=== PATIENT | male | born 1995 | race African-American/Black ===

== ENCOUNTER 2020-02-07 11:08 | Inpatient (IN) | payer SELFPAY ==
--- NOTE | 2020-02-07 12:02 | ER Document Report ---
ED Medical Screen (RME) - General Chief Complaint: Urinary Frequency Stated Complaint: FREQUENT URINATION,WEAKNESS Time Seen by Provider: 02/07/20 11:55 Mode of Arrival: Ambulatory Information source: Patient Notes: Otherwise healthy 24-year-old male patient presenting to the emergency department with complaints of frequent urination and excessive thirst over the last week. Patient also reports pain in his right lower extremity. He denies any history of diabetes. Denies any recent illness. Heart sounds S1-S2 present, tachycardic, lung sounds clear and equal bilaterally. I have greeted and performed a rapid initial assessment of this patient. A comprehensive ED assessment and evaluation of the patient, analysis of test results and completion of the medical decision making process will be conducted by additional ED providers. I have specifically instructed the patient or family members with the patient to immediately return to any nursing staff should anything change in the patient's condition or with their chief complaint. Physical Exam - Vital signs Vitals: Temp Pulse Resp BP Pulse Ox 97.5 F 108 H 18 163/92 H 100 02/07/20 11:18 02/07/20 11:18 02/07/20 11:18 02/07/20 11:18 02/07/20 11:18 Course - Vital Signs Vital signs: Temp Pulse Resp BP Pulse Ox 97.5 F 108 H 18 163/92 H 100 02/07/20 11:18 02/07/20 11:18 02/07/20 11:18 02/07/20 11:18 02/07/20 11:18
[2020-02-07] MEDS: NORMAL SALINE 1000 ML 1,000 ML IV PRN ×4 (12:30→20:30)
[2020-02-07 12:47] LABS: ABSOLUTE EOSINOPHILS # (AUTO) 0.2 10^3/uL (0.0-0.6); ABSOLUTE MONOCYTES (AUTO) 0.5 10^3/uL (0.1-1.4); ABSOLUTE NEUT (AUTO) 3.2 10^3/uL (1.7-8.2); BASOPHILS % (AUTO) 0.7 % (0-2); EOSINOPHILS % (AUTO) 3.6 % (0-6); HEMATOCRIT 50.9 % (37.9-51.0); HEMOGLOBIN 15.6 g/dL (13.5-17.0); LYMPHOCYTES % (AUTO) 19.3 % (13-45); MEAN CORPUSCULAR HGB CONC 30.7 g/dL (32.0-36.0); MEAN CORPUSCULAR VOLUME 85 fl (80-97); MONOCYTES % (AUTO) 10.8 % (3-13); RED BLOOD COUNT 6.01 10^6/uL (4.35-5.55); RED CELL DISTRIBUTION WIDTH 16.7 % (11.5-14.0); SEGMENTED NEUTROPHILS % (AUTO) 65.6 % (42-78); TOTAL CELLS COUNTED % (AUTO) 100 %; WHITE BLOOD COUNT 4.9 10^3/uL (4.0-10.5)
[2020-02-07 12:50] LABS: APPEARANCE,URINE CLEAR; BILIRUBIN,URINE NEGATIVE (NEGATIVE); COLOR,URINE COLORLESS; GLUCOSE, URINE >=500 mg/dL (NEGATIVE); KETONES,URINE TRACE mg/dL (NEGATIVE); LEUKOCYTE ESTERASE,URINE NEGATIVE (NEGATIVE); NITRITE,URINE NEGATIVE (NEGATIVE); PROTEIN,URINE NEGATIVE (NEGATIVE); URINE SPECIFIC GRAVITY 1.027; UROBILINOGEN,URINE NEGATIVE mg/dL (<2.0)
[2020-02-07 12:51] LABS: VENOUS BLOOD BASE EXCESS -2.6 mmol/L; VENOUS BLOOD HCO3 24.1 mmol/L (20-32); VENOUS BLOOD PCO2 48.6 mmHg (35-63); VENOUS BLOOD PH 7.31 (7.30-7.42)
[2020-02-07 13:07] LABS: ALBUMIN 4.8 g/dL (3.5-5.0); ALKALINE PHOSPHATASE 248 U/L (38-126); BILIRUBIN,DIRECT 0.3 mg/dL (0.0-0.4); BILIRUBIN,TOTAL 0.8 mg/dL (0.2-1.3); BLOOD UREA NITROGEN 36 mg/dL (7-20); CALCIUM 11.4 mg/dL (8.4-10.2); CARBON DIOXIDE 19 mmol/L (22-30); CHLORIDE 87 mmol/L (98-107); POTASSIUM 5.8 mmol/L (3.6-5.0); TOTAL PROTEIN 9.4 g/dL (6.3-8.2)
[2020-02-07 13:14] LABS: PLATELET COUNT 233 10^3/uL (150-450)
[2020-02-07 13:16] LABS: ASPARTATE AMINO TRANSFERASE 23 U/L (17-59); GLUCOSE 1065 mg/dL (75-110)
[2020-02-07] MEDS ORDERED: INSULIN REG, HUMAN 100 UNIT/ML 3 ML VIAL (PYX) IV ONE (13:19)
[2020-02-07 13:20] LABS: ANION GAP 21 (5-19)
--- NOTE | 2020-02-07 13:46 | ER Document Report ---
Entered by SAIDA GRUBBS SCRIBE 02/07/20 [id number] Acting as scribe for:KAYDEN MUJICA MD ED General - General Chief Complaint: Urinary Frequency Stated Complaint: FREQUENT URINATION,WEAKNESS Time Seen by Provider: 02/07/20 11:55 Mode of Arrival: Ambulatory Information source: Patient Notes: This 24 year old male patient presents to the emergency department today with complaints of a x9-10 day history of frequent urination, increased thirst, and a 10 pound weight loss. Patient's parents are now but both had IDDM. Patient takes no medication daily and has no known medical problems. - Related Data Allergies/Adverse Reactions: No Known Allergies Allergy (Verified 02/07/20 12:04) Past Medical History - General Information source: Patient - Social History Smoking Status: Never Smoker Cigarette use (# per day): No Chew tobacco use (# tins/day): No Frequency of alcohol use: Occasional Drug Abuse: Marijuana Lives with: Family Family History: DM, Malignancy Surgical Hx: Negative Review of Systems - Review of Systems Constitutional: See HPI, Other - increased thirst, Weight loss - 10 pounds EENT: No symptoms reported Cardiovascular: No symptoms reported Respiratory: No symptoms reported Gastrointestinal: No symptoms reported Genitourinary: See HPI, Frequency Male Genitourinary: No symptoms reported Musculoskeletal: No symptoms reported Skin: No symptoms reported Hematologic/Lymphatic: No symptoms reported Neurological/Psychological: No symptoms reported -: Yes All other systems reviewed and negative Physical Exam - Vital signs Vitals: Temp Pulse Resp BP Pulse Ox 97.5 F 108 H 18 163/92 H 100 02/07/20 11:18 02/07/20 11:18 02/07/20 11:18 02/07/20 11:18 02/07/20 11:18 - Notes Notes: Physical Exam: General: Alert, no ketone odor on breath. HEENT: Normocephalic. Atraumatic. PERRL. Extraocular movements intact. Oropharynx clear. Dry oral mucosa. Neck: Supple. Non-tender. Respiratory: No respiratory distress. Clear and equal breath sounds bilaterally. Cardiovascular: Tachycardic, regular rhythm. Abdominal: Obese. Non-tender. No distension. Normal Bowel Sounds. Back: No gross abnormalities. Extremities: Moves all four extremities. Upper extremities: Normal inspection. Normal ROM. Lower extremities: Normal inspection. No edema. Normal ROM. Neurological: Normal cognition. AAOx4. Normal speech. Psychological: Normal affect. Normal Mood. Skin: Warm. Dry. Normal color. Course - Vital Signs Vital signs: Temp Pulse Resp BP Pulse Ox 97.5 F 108 H 15 138/97 H 100 02/07/20 11:18 02/07/20 11:18 02/07/20 19:00 02/07/20 18:01 02/07/20 19:00 - Laboratory Result Diagrams: 02/07/20 12:22 02/07/20 12:22 Laboratory results interpreted by me: 02/07/20 02/07/20 02/07/20 12:22 12:22 12:22 RBC 6.01 H MCH 26.0 L MCHC 30.7 L RDW 16.7 H Sodium 127.1 L Potassium 5.8 H Chloride 87 L Carbon Dioxide 19 L Anion Gap 21 H BUN 36 H Creatinine 1.93 H Est GFR ( Amer) 52 L Est GFR (MDRD) Non-Af 43 L Glucose 1065 H* Calcium 11.4 H Alkaline Phosphatase 248 H Total Protein 9.4 H Urine Glucose (UA) >=500 H Urine Ketones TRACE H - EKG Interpretation by Me EKG shows normal: Sinus rhythm, [place], QRS Complexes, ST-T Waves. abnormal: Intervals - Prolonged QT interval Rate: Normal - 96 Rhythm: NSR Voltage: Consistent with LVH P Waves: LAE Critical Care Note - Critical Care Note Total time excluding time spent on procedures (mins): 35 Comments: At least 35 minutes spent evaluating patient, reviewing history, physical fin dings, and laboratory abnormalities. Starting emergency management of life- threatening hypoglycemia. Discussing patient with the hospitalist service to get the admission started. Discharge - Discharge Clinical Impression: New onset type 2 diabetes mellitus Hyperglycemia due to type 2 diabetes mellitus Qualifiers: Diabetes mellitus terminal supervisor insulin use: without terminal supervisor use Qualified Code(s): E11.65 - Type 2 diabetes mellitus with hyperglycemia Condition: Stable Disposition: ADMITTED INPATIENT Admitting Provider: Lorena (Hospitalist) Unit Admitted: I[facility]U I personally performed the services described in the documentation, reviewed and edited the documentation which was dictated to the scribe in my presence, and it accurately records my words and actions.
[2020-02-07] MEDS ORDERED: ONDANSETRON HCL INJ/PF 4 MG/2 ML SDV IV PRN (13:50)
[2020-02-07] MEDS: NORMAL SALINE 100 ML with INSULIN REGULAR, HUMAN 100 UNIT IV PRN ×4 (13:50→23:13)
[2020-02-07] MEDS ORDERED: ACETAMINOPHEN 325 MG TABLET PO PRN (13:50)
[2020-02-07] MEDS ORDERED: DEXTROSE 40% GEL 15 GM TUBE PO PRN ×2 (13:54)
[2020-02-07] MEDS ORDERED: GLUCAGON,HUMAN RECOMB 1 MG INJ IM PRN (13:54)
[2020-02-07] MEDS ORDERED: DEXTROSE 50%-WATER 25 GM/50 ML DISP.SYRIN IV PRN ×2 (13:54)
--- NOTE | 2020-02-07 14:05 | PDOC H&P ---
History of Present Illness Patient complains of: Came with the complaints of weight loss of more than 10 pounds associated with the increased frequency of urination and thirstiness. History of Present Illness: FELIPE FAJARDO is a 24 year old male no significant medical history but a strong family history of diabetes mellitus came to the emergency room with complaints of increased frequency of urination, associated with increased to 13 days, weight loss of more than 10 pounds. In the emergency room blood sugar is 1065, serum sodium is 127, potassium is 5.8, creatinine is 1.93 and anion gap is around 21. Patient was started on IV fluids and unable to get insulin drip and medical consult was called for admission. Past Surgical History Past Surgical History: Reports: None Social History Lives with: Family Smoking Status: Never Smoker Electronic Cigarette use?: No Hx Recreational Drug Use: No Drugs: Marijuana Hx Prescription Drug Abuse: No - Advance Directive Resuscitation Status: Full Code Family History Family History: DM, Malignancy Parental Family History Reviewed: Yes Children Family History Reviewed: Yes Sibling(s) Family History Reviewed.: Yes Medication/Allergy Home Medications: No Home Medications 02/07/20 Allergies/Adverse Reactions: No Known Allergies Allergy (Verified 02/07/20 12:04) Review of Systems Constitutional: ABSENT: fatigue, fever(s), headache(s), night sweats Eyes: ABSENT: visual disturbances Ears: ABSENT: hearing changes Nose, Mouth, and Throat: ABSENT: sore throat Cardiovascular: ABSENT: orthropnea, palpitations Respiratory: ABSENT: dyspnea, hemoptysis Gastrointestinal: ABSENT: bloating, coffee ground emesis, diarrhea, dysphagia Genitourinary: PRESENT: other - Polyuria, polydipsia Musculoskeletal: ABSENT: joint swelling Integumentary: ABSENT: rash, wounds Neurological: ABSENT: abnormal gait, abnormal speech, confusion, dizziness, focal weakness, syncope Psychiatric: ABSENT: anxiety, depression, homidical ideation, suicidal ideation Physical Exam Vital Signs: Temp Pulse Resp BP Pulse Ox 97.5 F 108 H 18 163/92 H 100 02/07/20 11:18 02/07/20 11:18 02/07/20 11:18 02/07/20 11:18 02/07/20 11:18 Intake & Output 02/06/20 02/07/20 02/08/20 06:59 06:59 06:59 Intake Total 1000 Balance 1000 Weight 97.2 kg General appearance: PRESENT: no acute distress, cooperative Head exam: PRESENT: atraumatic Eye exam: PRESENT: PERRLA Mouth exam: PRESENT: moist, tongue midline Neck exam: ABSENT: carotid bruit, JVD, lymphadenopathy, thyromegaly Respiratory exam: PRESENT: clear to auscultation arn[place]. ABSENT: rales, rhonchi, wheezes Cardiovascular exam: PRESENT: RRR. ABSENT: diastolic murmur, rubs, systolic murmur GI/Abdominal exam: PRESENT: normal bowel sounds, soft. ABSENT: distended, guarding, mass, organolmegaly, rebound, tenderness Rectal exam: PRESENT: deferred Extremities exam: PRESENT: full ROM. ABSENT: calf tenderness, clubbing, pedal edema Neurological exam: PRESENT: alert, awake, oriented to person, oriented to place, oriented to time, oriented to situation, CN II-XII grossly intact. ABSENT: motor sensory deficit Psychiatric exam: PRESENT: appropriate affect, normal mood. ABSENT: homicidal ideation, suicidal ideation Skin exam: PRESENT: dry, intact, warm. ABSENT: cyanosis, rash Results Laboratory Results: 02/07/20 12:22 02/07/20 12:22 02/07/20 02/07/20 02/07/20 12:22 12:22 12:22 WBC 4.9 RBC 6.01 H Hgb 15.6 Hct 50.9 MCV 85 MCH 26.0 L MCHC 30.7 L RDW 16.7 H Plt Count 233 Seg Neutrophils % 65.6 VBG pH 7.31 VBG pCO2 48.6 VBG HCO3 24.1 VBG Base Excess -2.6 Sodium 127.1 L Potassium 5.8 H Chloride 87 L Carbon Dioxide 19 L Anion Gap 21 H BUN 36 H Creatinine 1.93 H Est GFR ( Amer) 52 L Glucose 1065 H* Calcium 11.4 H Total Bilirubin 0.8 AST 23 Alkaline Phosphatase 248 H Total Protein 9.4 H Albumin 4.8 Urine Color Urine Appearance Urine pH Ur Specific [place] Urine Protein Urine Glucose (UA) Urine Ketones Urine Blood Urine Nitrite Ur Leukocyte Esterase Urine WBC (Auto) 02/07/20 12:22 WBC RBC Hgb Hct MCV MCH MCHC RDW Plt Count Seg Neutrophils % VBG pH VBG pCO2 VBG HCO3 VBG Base Excess Sodium Potassium Chloride Carbon Dioxide Anion Gap BUN Creatinine Est GFR ( Amer) Glucose Calcium Total Bilirubin AST Alkaline Phosphatase Total Protein Albumin Urine Color COLORLESS Urine Appearance CLEAR Urine pH 6.0 Ur Specific [place] 1.027 Urine Protein NEGATIVE Urine Glucose (UA) >=500 H Urine Ketones TRACE H Urine Blood NEGATIVE Urine Nitrite NEGATIVE Ur Leukocyte Esterase NEGATIVE Urine WBC (Auto) 0 Assessment and Plan - Diagnosis (1) New onset type 2 diabetes mellitus Is this a current diagnosis for this admission?: Yes Plan: 04/08/2019-patient is going to be admitted with a diagnosis of new onset type 2 diabetes mellitus with a strong family history of diabetes. Blood sugar in the ER is 1065, in acute renal failure, with hyponatremia and hyperkalemia. Patient was started on insulin drip, to continue IV fluids normal saline at 250 cc/h. To check the labs every 4-6 hours. Prophylaxis DVT prophylaxis initiated. Counseling was provided about diabetes mellitus. (2) Hyponatremia Is this a current diagnosis for this admission?: Yes Plan: 02/07/2020-serum sodium is 127. Corrected serum sodium is within normal limits. (3) LAITH (acute kidney injury) Is this a current diagnosis for this admission?: Yes Plan: 02/07/2020-admission serum creatinine is 1.93. Acute kidney injury most likely secondary to prerenal causes. Patient is presently on normal saline to 250 cc/h. Received 2 L of normal saline in the ER. (4) Hyperkalemia Is this a current diagnosis for this admission?: Yes Plan: 02/07/2020-serum potassium is 5.8. hyper kalemia most likely secondary to acute kidney injury. Plan is to check the labs the labs on regular basis. - Time Anticipated Discharge Disposition: Home, Self Care Anticipated Discharge Timeframe: within 72 hours
[2020-02-07] MEDS: PANTOPRAZOLE SODIUM 40 MG TABLET.DR PO SCH (16:24)
[2020-02-07] MEDS ORDERED: HYDRALAZINE HCL INJ/PF 20 MG/1 ML SDV IV PRN (17:16)
--- NOTE | 2020-02-07 19:27 | EKG REPORT ---
SEVERITY:- ABNORMAL ECG - SINUS RHYTHM PROBABLE LEFT ATRIAL ABNORMALITY LEFT VENTRICULAR HYPERTROPHY ST ELEV, PROBABLE NORMAL EARLY REPOL PATTERN PROLONGED QT INTERVAL : Confirmed by: Nava Acosta MD 07-Feb-2020 19:27:11
[2020-02-07 19:45] LABS: ANION GAP 11 (5-19); BLOOD UREA NITROGEN 27 mg/dL (7-20); CALCIUM 10.8 mg/dL (8.4-10.2); CARBON DIOXIDE 24 mmol/L (22-30); CHLORIDE 104 mmol/L (98-107)
[2020-02-07 19:51] LABS: POTASSIUM 4.4 mmol/L (3.6-5.0)
[2020-02-07 19:53] LABS: GLUCOSE 402 mg/dL (75-110)
[2020-02-08 03:03] LABS: HEMATOCRIT 40.7 % (37.9-51.0); MEAN CORPUSCULAR HEMOGLOBIN 25.9 pg (27.0-33.4); MEAN CORPUSCULAR HGB CONC 32.4 g/dL (32.0-36.0); PLATELET COUNT 213 10^3/uL (150-450); RED BLOOD COUNT 5.09 10^6/uL (4.35-5.55); RED CELL DISTRIBUTION WIDTH 15.9 % (11.5-14.0); WHITE BLOOD COUNT 3.9 10^3/uL (4.0-10.5)
[2020-02-08 03:04] LABS: HEMOGLOBIN 13.2 g/dL (13.5-17.0); MEAN CORPUSCULAR VOLUME 80 fl (80-97)
[2020-02-08] MEDS ORDERED: DEXTROSE 5%-1/2 NORMAL SALINE 1,000 ML IV PRN (03:17)
[2020-02-08 03:19] LABS: ALBUMIN 3.5 g/dL (3.5-5.0); ALKALINE PHOSPHATASE 157 U/L (38-126); AMYLASE 59 U/L (30-110); ANION GAP 11 (5-19); ASPARTATE AMINO TRANSFERASE 26 U/L (17-59); BILIRUBIN,DIRECT 0.3 mg/dL (0.0-0.4); BILIRUBIN,TOTAL 0.6 mg/dL (0.2-1.3); BLOOD UREA NITROGEN 21 mg/dL (7-20); CALCIUM 9.6 mg/dL (8.4-10.2); CARBON DIOXIDE 23 mmol/L (22-30); CHLORIDE 108 mmol/L (98-107); CHOLESTEROL 183.03 mg/dL (0-200); GLUCOSE 116 mg/dL (75-110); POTASSIUM 3.8 mmol/L (3.6-5.0); TOTAL PROTEIN 7.1 g/dL (6.3-8.2); TRIGLYCERIDES 183 mg/dL (<150)
[2020-02-08 03:30] LABS: DIRECT LDL 126 mg/dL (<100)
[2020-02-08] MEDS ORDERED: INSULIN GLARGINE,HUM.REC.ANLOG 1,000 UNIT/10 ML VIAL (PYX) SUBCUT ONE (03:30)
[2020-02-08 03:35] LABS: VLDL CHOLESTEROL 36.6 mg/dL (10-31)
[2020-02-08 04:02] LABS: ABSOLUTE LYMPHOCYTES# (MANUAL) 0.8 10^3/uL (0.5-4.7); ABSOLUTE MONOCYTES # (MANUAL) 0.4 10^3/uL (0.1-1.4); ANISOCYTOSIS 1+; BAND NEUTROPHILS % (MANUAL) 1 % (3-5); BASOPHILS % (MANUAL) 0 % (0-2); EOSINOPHILS % (MANUAL) 11 % (0-6); HYPOCHROMASIA SLIGHT; LYMPHOCYTES % (MANUAL) 16 % (13-45); MONOCYTES % (MANUAL) 11 % (3-13); SEGMENTED NEUTROPHILS % (MAN) 56 % (42-78); TOTAL CELLS COUNTED 100; TOXIC GRANULATION SLIGHT; TOXIC VACUOLATION PRESENT
[2020-02-08 04:03] LABS: PLATELET COMMENT ADEQUATE
[2020-02-08] MEDS: PANTOPRAZOLE SODIUM 40 MG TABLET.DR PO SCH ×2 (06:00→16:25)
[2020-02-08] MEDS: INSULIN REG, HUMAN 100 UNIT/ML 3 ML VIAL (PYX) SUBCUT SCH ×4 (08:18→22:11)
--- NOTE | 2020-02-08 10:11 | PDOC PROGRESS REPORT ---
Subjective Date:: 02/08/20 Subjective:: 24 year old male no significant medical history but a strong family history of d iabetes mellitus came to the emergency room with complaints of increased frequency of urination, associated with increased to 13 days, weight loss of more than 10 pounds. In the emergency room blood sugar is 1065, serum sodium is 127, potassium is 5.8, creatinine is 1.93 and anion gap is around 21. Patient was started on IV fluids and unable to get insulin drip and medical consult was called for admission. 02/[id number]-[id number]-old male admitted with diabetic ketoacidosis. Resolving. No acute events in the last 24 hours. Patient presently on diabetic diet, insulin drip is discontinued, started on Lantus 25 units twice a day. Diabetic education was provided. Latest blood sugar is 213. Reason For Visit: DKA Physical Exam Vital Signs: Temp Pulse Resp BP Pulse Ox 98.1 F 85 16 147/86 H 100 02/08/20 07:59 02/08/20 07:59 02/08/20 07:59 02/08/20 07:59 02/08/20 07:59 Intake & Output 02/07/20 02/08/20 02/09/20 06:59 06:59 06:59 Intake Total 5072 Output Total 400 Balance 4672 Weight 101.9 kg General appearance: PRESENT: no acute distress, cooperative Head exam: PRESENT: atraumatic Eye exam: PRESENT: PERRLA Mouth exam: PRESENT: moist, tongue midline Teeth exam: PRESENT: poor dentation Neck exam: PRESENT: lymphadenopathy Respiratory exam: PRESENT: decreased breath sounds Cardiovascular exam: PRESENT: RRR. ABSENT: diastolic murmur, rubs, systolic murmur GI/Abdominal exam: PRESENT: normal bowel sounds, soft. ABSENT: distended, guarding, mass, organolmegaly, rebound, tenderness Rectal exam: PRESENT: deferred Extremities exam: PRESENT: full ROM. ABSENT: calf tenderness, clubbing, pedal edema Neurological exam: PRESENT: alert, awake, oriented to person, oriented to place, oriented to time, oriented to situation, CN II-XII grossly intact. ABSENT: motor sensory deficit Psychiatric exam: PRESENT: appropriate affect, normal mood. ABSENT: homicidal ideation, suicidal ideation Skin exam: PRESENT: dry, intact, warm. ABSENT: cyanosis, rash Results Laboratory Results: 02/08/20 02:32 02/08/20 02:32 02/07/20 02/07/20 02/07/20 12:22 12:22 12:22 WBC 4.9 RBC 6.01 H Hgb 15.6 Hct 50.9 MCV 85 MCH 26.0 L MCHC 30.7 L RDW 16.7 H Plt Count 233 Seg Neutrophils % 65.6 VBG pH 7.31 VBG pCO2 48.6 VBG HCO3 24.1 VBG Base Excess -2.6 Sodium 127.1 L Potassium 5.8 H Chloride 87 L Carbon Dioxide 19 L Anion Gap 21 H BUN 36 H Creatinine 1.93 H Est GFR ( Amer) 52 L Glucose 1065 H* Calcium 11.4 H Magnesium Total Bilirubin 0.8 AST 23 Alkaline Phosphatase 248 H Total Protein 9.4 H Albumin 4.8 Triglycerides Cholesterol LDL Cholesterol Direct VLDL Cholesterol HDL Cholesterol Amylase Lipase TSH Urine Color Urine Appearance Urine pH Ur Specific [place] Urine Protein Urine Glucose (UA) Urine Ketones Urine Blood Urine Nitrite Ur Leukocyte Esterase Urine WBC (Auto) 02/07/20 02/07/20 02/07/20 12:22 12:22 19:00 WBC RBC Hgb Hct MCV MCH MCHC RDW Plt Count Seg Neutrophils % VBG pH VBG pCO2 VBG HCO3 VBG Base Excess Sodium 139.2 Potassium 4.4 D Chloride 104 Carbon Dioxide 24 Anion Gap 11 BUN 27 H Creatinine 1.52 H Est GFR ( Amer) > 60 Glucose 402 H* Calcium 10.8 H Magnesium Total Bilirubin AST Alkaline Phosphatase Total Protein Albumin Triglycerides Cholesterol LDL Cholesterol Direct VLDL Cholesterol HDL Cholesterol Amylase Lipase 150.2 TSH Urine Color COLORLESS Urine Appearance CLEAR Urine pH 6.0 Ur Specific [place] 1.027 Urine Protein NEGATIVE Urine Glucose (UA) >=500 H Urine Ketones TRACE H Urine Blood NEGATIVE Urine Nitrite NEGATIVE Ur Leukocyte Esterase NEGATIVE Urine WBC (Auto) 0 02/08/20 02/08/20 02/08/20 02:32 02:32 02:32 WBC 3.9 L RBC 5.09 Hgb 13.2 L D Hct 40.7 MCV 80 D MCH 25.9 L MCHC 32.4 RDW 15.9 H Plt Count 213 Seg Neutrophils % Not Reportable VBG pH VBG pCO2 VBG HCO3 VBG Base Excess Sodium 142.2 Potassium 3.8 Chloride 108 H Carbon Dioxide 23 Anion Gap 11 BUN 21 H Creatinine 1.25 Est GFR ( Amer) > 60 Glucose 116 H Calcium 9.6 Magnesium 1.8 Total Bilirubin 0.6 AST 26 Alkaline Phosphatase 157 H Total Protein 7.1 Albumin 3.5 Triglycerides 183 H Cholesterol 183.03 LDL Cholesterol Direct 126 H VLDL Cholesterol 36.6 H HDL Cholesterol 20 L Amylase 59 Lipase TSH 1.11 Urine Color Urine Appearance Urine pH Ur Specific [place] Urine Protein Urine Glucose (UA) Urine Ketones Urine Blood Urine Nitrite Ur Leukocyte Esterase Urine WBC (Auto) 02/07/20 02/07/20 02/07/20 12:22 20:25 20:25 Troponin I < 0.012 < 0.012 NT-Pro-B Natriuret Pep < 11 02/08/20 02:32 Troponin I < 0.012 NT-Pro-B Natriuret Pep Assessment and Plan - Diagnosis (1) New onset type 2 diabetes mellitus Is this a current diagnosis for this admission?: Yes Plan: 02/07/2020-patient is going to be admitted with a diagnosis of new onset type 2 diabetes mellitus with a strong family history of diabetes. Blood sugar in the ER is 1065, in acute renal failure, with hyponatremia and hyperkalemia. Patient was started on insulin drip, to continue IV fluids normal saline at 250 cc/h. To check the labs every 4-6 hours. Prophylaxis DVT prophylaxis initiated. Counseling was provided about diabetes mellitus. 02/[id number]-lvxz-old male admitted for newly diagnosed diabetes mellitus and DKA. Doing well. Latest blood sugar is 213. Started on diabetic diet, presently on Lantus 25 units twice a day. Hemoglobin A1c is 10.5. IV fluids were discontinued, insulin drip is discontinued, to repeat the labs tomorrow. (2) Hyponatremia Is this a current diagnosis for this admission?: Yes Plan: 02/07/2020-serum sodium is 127. Corrected serum sodium is within normal limits. 02/08/2020-serum sodium is 141. Hyponatremia due to DKA resolving. (3) LAITH (acute kidney injury) Is this a current diagnosis for this admission?: Yes Plan: 02/07/2020-admission serum creatinine is 1.93. Acute kidney injury most likely secondary to prerenal causes. Patient is presently on normal saline to 250 cc/h. Received 2 L of normal saline in the ER. 02/08/20-admission serum creatinine is 1.93. Creatinine this morning 1.23. LAITH is resolving. (4) Hyperkalemia Is this a current diagnosis for this admission?: Yes Plan: 02/07/2020-serum potassium is 5.8. hyper kalemia most likely secondary to acute kidney injury. Plan is to check the labs the labs on regular basis. 02/08/2020-serum potassium this morning is 3.9. Hyperkalemia is resolved. - Time Anticipated Discharge Disposition: Home, Self Care Anticipated Discharge Timeframe: within 48 hours
[2020-02-08] MEDS: INSULIN GLARGINE,HUM.REC.ANLOG 1,000 UNIT/10 ML VIAL SUBCUT SCH ×2 (10:16→17:29)
[2020-02-08] MEDS: ENOXAPARIN SODIUM INJ 40 MG/0.4 ML DISP.SYRIN SUBCUT SCH (10:17)
[2020-02-08] MEDS ORDERED: INSULIN GLARGINE,HUM.REC.ANLOG 1,000 UNIT/10 ML VIAL SUBCUT SCH (22:00)
[2020-02-08] MEDS ORDERED: INSULIN REG, HUMAN 100 UNIT/ML 3 ML VIAL (PYX) SUBCUT ONE (23:45)
[2020-02-09] MEDS: PANTOPRAZOLE SODIUM 40 MG TABLET.DR PO SCH (05:36)
[2020-02-09] MEDS ORDERED: INFLUENZA QUAD (6MOS+) 2020-21 VAC 0.5 ML SYR IM ONE (08:00)
[2020-02-09] MEDS: INSULIN REG, HUMAN 100 UNIT/ML 3 ML VIAL (PYX) SUBCUT SCH ×3 (08:55→17:00)
[2020-02-09] MEDS: ENOXAPARIN SODIUM INJ 40 MG/0.4 ML DISP.SYRIN SUBCUT SCH (10:00)
[2020-02-09] MEDS ORDERED: INSULIN GLARGINE,HUM.REC.ANLOG 1,000 UNIT/10 ML VIAL SUBCUT SCH (11:00)
--- NOTE | 2020-02-09 11:46 | PDOC DISCHARGE SUMMARY ---
Impression - Admit/DC Date/PCP Admission Date/Primary Care Provider: 02/07/20 14:03 Discharge Date: 02/09/20 - Discharge Diagnosis (1) New onset type 2 diabetes mellitus Is this a current diagnosis for this admission?: Yes (2) Hyponatremia Is this a current diagnosis for this admission?: Yes (3) LAITH (acute kidney injury) Is this a current diagnosis for this admission?: Yes (4) Hyperkalemia Is this a current diagnosis for this admission?: Yes - Assessment Summary: (1) New onset type 2 diabetes mellitus Is this a current diagnosis for this admission?: Yes Plan: 02/07/2020-patient is going to be admitted with a diagnosis of new onset type 2 diabetes mellitus with a strong family history of diabetes. Blood sugar in the ER is 1065, in acute renal failure, with hyponatremia and hyperkalemia. Patient was started on insulin drip, to continue IV fluids normal saline at 250 cc/h. To check the labs every 4-6 hours. Prophylaxis DVT prophylaxis initiated. Counseling was provided about diabetes mellitus. 02/08/[id number]-pupk-old male admitted for newly diagnosed diabetes mellitus and DKA. Doing well. Latest blood sugar is 213. Started on diabetic diet, presently on Lantus 25 units twice a day. Hemoglobin A1c is 10.5. IV fluids were discontinued, insulin drip is discontinued, to repeat the labs tomorrow. 02/09/2020-patient admitted with newly diagnosed diabetes mellitus, hemoglobin A1c is 10.5 found to be in DKA. Initially on insulin drip with IV fluids and her blood sugars are improved. Patient is going home on Lantus 25 units twice a day along with Humalog sliding scale. Diet exercise weight loss lifestyle modification discussed with the patient patient is advised to follow-up with primary care physician next week. (2) Hyponatremia Is this a current diagnosis for this admission?: Yes Plan: 02/07/2020-serum sodium is 127. Corrected serum sodium is within normal limits. 02/08/2020-serum sodium is 141. Hyponatremia due to DKA resolving. 02/09/2020-latest serum sodium is 142. Hyponatremia resolved. (3) LAITH (acute kidney injury) Is this a current diagnosis for this admission?: Yes Plan: 02/07/2020-admission serum creatinine is 1.93. Acute kidney injury most likely secondary to prerenal causes. Patient is presently on normal saline to 250 cc/h. Received 2 L of normal saline in the ER. 02/08/20-admission serum creatinine is 1.93. Creatinine this morning 1.23. LAITH is resolving. 04/10/2019-creatinine improved to 1.25. Acute kidney injury resolved. (4) Hyperkalemia Is this a current diagnosis for this admission?: Yes Plan: 02/07/2020-serum potassium is 5.8. hyper kalemia most likely secondary to acute kidney injury. Plan is to check the labs the labs on regular basis. 02/08/2020-serum potassium this morning is 3.9. Hyperkalemia is resolved. 02/09/2020-serum potassium today's 3.8. Hyperkalemia resolved. - Additional Information Resuscitation Status: Full Code Discharge Diet: Cardiac, Diabetic Discharge Activity: Activity As Tolerated Referrals: [facility] [Outside] Prescriptions: Insulin Regular, Human [Humulin R (Reg) Insulin 100 unit/mL] 0 - 12 unit SUBCUT ACHS 30 Days #2 vial Insulin Glargine,Hum.rec.anlog [Lantus Insulin 100 Unit/1 ml 10 ml] 25 unit SUBCUT Q12 30 Days #2 vial Home Medications: Insulin Glargine,Hum.rec.anlog [Lantus Insulin 100 Unit/1 ml 10 ml] 25 unit SUBCUT Q12 30 Days #2 vial 02/09/20 Insulin Regular, Human [Humulin R (Reg) Insulin 100 unit/mL] 0 - 12 unit SUBCUT ACHS 30 Days #2 vial 02/09/20 History of Present Illiness History of Present Illness: FELIPE FAJARDO is a 24 year old male no significant medical history but a strong family history of diabetes mellitus came to the emergency room with complaints of increased frequency of urination, associated with increased to 13 days, weight loss of more than 10 pounds. In the emergency room blood sugar is 1065, serum sodium is 127, potassium is 5.8, creatinine is 1.93 and anion gap is around 21. Patient was started on IV fluids and unable to get insulin drip and medical consult was called for admission. Hospital Course Hospital Course: 24 year old male no significant medical history but a strong family history of diabetes mellitus came to the emergency room with complaints of increased frequency of urination, associated with increased to 13 days, weight loss of more than 10 pounds. In the emergency room blood sugar is 1065, serum sodium is 127, potassium is 5.8, creatinine is 1.93 and anion gap is around 21. Patient was started on IV fluids and unable to get insulin drip and medical consult was called for admission. 02/08/[id number]-ikwy-old male admitted with diabetic ketoacidosis. Resolving. No acute events in the last 24 hours. Patient presently on diabetic diet, insulin drip is discontinued, started on Lantus 25 units twice a day. Diabetic education was provided. Latest blood sugar is 213. 02/09/2061-14-duuv-old male admitted with newly diagnosed diabetes mellitus, DKA. DKA resolved. Hemoglobin A1c is 10.5. Patient is going home on Lantus 25 units twice a day, glucometer machine, supplies provided. Patient is advised to follow-up with primary care physician next week. Physical Exam Vital Signs: Temp Pulse Resp BP Pulse Ox 98.0 F 91 20 138/83 H 100 02/09/20 10:00 02/09/20 07:48 02/09/20 07:48 02/09/20 07:48 02/09/20 07:48 Intake & Output 02/08/20 02/09/20 02/10/20 06:59 06:59 06:59 Intake Total 5072 1130 Output Total 400 Balance 4672 1130 Weight 101.9 kg 101.4 kg General appearance: PRESENT: no acute distress Head exam: PRESENT: atraumatic Eye exam: PRESENT: PERRLA Mouth exam: PRESENT: moist, tongue midline Teeth exam: PRESENT: poor dentation Neck exam: ABSENT: carotid bruit, JVD, lymphadenopathy, thyromegaly Respiratory exam: PRESENT: decreased breath sounds Cardiovascular exam: PRESENT: RRR. ABSENT: diastolic murmur, rubs, systolic murmur Pulses: PRESENT: normal dorsalis pedis pul GI/Abdominal exam: PRESENT: normal bowel sounds, soft. ABSENT: distended, guarding, mass, organolmegaly, rebound, tenderness Rectal exam: PRESENT: deferred Extremities exam: PRESENT: full ROM. ABSENT: calf tenderness, clubbing, pedal edema Neurological exam: PRESENT: alert, awake, oriented to person, oriented to place, oriented to time, oriented to situation, CN II-XII grossly intact. ABSENT: motor sensory deficit Psychiatric exam: PRESENT: appropriate affect, normal mood. ABSENT: homicidal ideation, suicidal ideation Results Laboratory Results: WBC 3.9 10^3/uL (4.0-10.5) L 02/08/20 02:32 RBC 5.09 10^6/uL (4.35-5.55) 02/08/20 02:32 Hgb 13.2 g/dL (13.5-17.0) L D 02/08/20 02:32 Hct 40.7 % (37.9-51.0) 02/08/20 02:32 MCV 80 fl (80-97) D 02/08/20 02:32 MCH 25.9 pg (27.0-33.4) L 02/08/20 02:32 MCHC 32.4 g/dL (32.0-36.0) 02/08/20 02:32 RDW 15.9 % (11.5-14.0) H 02/08/20 02:32 Plt Count 213 10^3/uL (150-450) 02/08/20 02:32 Lymph % (Auto) Not Reportable 02/08/20 02:32 Kaufman % (Auto) Not Reportable 02/08/20 02:32 Eos % (Auto) Not Reportable 02/08/20 02:32 Baso % (Auto) Not Reportable 02/08/20 02:32 Absolute Neuts (auto) Not Reportable 02/08/20 02:32 Absolute Lymphs (auto) Not Reportable 02/08/20 02:32 Absolute Monos (auto) Not Reportable 02/08/20 02:32 Absolute Eos (auto) Not Reportable 02/08/20 02:32 Absolute Basos (auto) Not Reportable 02/08/20 02:32 Total Counted 100 02/08/20 02:32 Seg Neutrophils % Not Reportable 02/08/20 02:32 Seg Neuts % (Manual) 56 % (42-78) 02/08/20 02:32 Band Neutrophils % 1 % (3-5) L 02/08/20 02:32 Lymphocytes % (Manual) 16 % (13-45) 02/08/20 02:32 Atypical Lymphs % 5 % (0) 02/08/20 02:32 Monocytes % (Manual) 11 % (3-13) 02/08/20 02:32 Eosinophils % (Manual) 11 % (0-6) H 02/08/20 02:32 Basophils % (Manual) 0 % (0-2) 02/08/20 02:32 Abs Neuts (Manual) 2.2 10^3/uL (1.7-8.2) 02/08/20 02:32 Abs Lymphs (Manual) 0.8 10^3/uL (0.5-4.7) 02/08/20 02:32 Abs Monocytes (Manual) 0.4 10^3/uL (0.1-1.4) 02/08/20 02:32 Absolute Eos (Manual) 0.4 10^3/uL (0.0-0.6) 02/08/20 02:32 Abs Basophils (Manual) 0.0 10^3/uL (0.0-0.2) 02/08/20 02:32 Toxic Granulation SLIGHT 02/08/20 02:32 Toxic Vacuolation PRESENT 02/08/20 02:32 Platelet Comment ADEQUATE 02/08/20 02:32 Hypochromasia SLIGHT 02/08/20 02:32 Anisocytosis 1+ 02/08/20 02:32 Microcytosis SLIGHT 02/08/20 02:32 VBG pH 7.31 (7.30-7.42) 02/07/20 12:22 VBG pCO2 48.6 mmHg (35-63) 02/07/20 12:22 VBG HCO3 24.1 mmol/L (20-32) 02/07/20 12:22 VBG Base Excess -2.6 mmol/L 02/07/20 12:22 Sodium 142.2 mmol/L (137-145) 02/08/20 02:32 Potassium 3.8 mmol/L (3.6-5.0) 02/08/20 02:32 Chloride 108 mmol/L (98-107) H 02/08/20 02:32 Carbon Dioxide 23 mmol/L (22-30) 02/08/20 02:32 Anion Gap 11 (5-19) 02/08/20 02:32 BUN 21 mg/dL (7-20) H 02/08/20 02:32 Creatinine 1.25 mg/dL (0.52-1.25) 02/08/20 02:32 Est GFR ( Amer) > 60 (>60) 02/08/20 02:32 Est GFR (MDRD) Non-Af > 60 (>60) 02/08/20 02:32 Glucose 116 mg/dL (75-110) H 02/08/20 02:32 POC Glucose 204 mg/dL (70-110) H 02/09/20 07:52 Hemoglobin A1c % 10.5 % (4.7-6.0) H 02/08/20 02:32 Calcium 9.6 mg/dL (8.4-10.2) 02/08/20 02:32 Magnesium 1.8 mg/dL (1.6-2.3) 02/08/20 02:32 Total Bilirubin 0.6 mg/dL (0.2-1.3) 02/08/20 02:32 Direct Bilirubin 0.3 mg/dL (0.0-0.4) 02/08/20 02:32 Neonat Total Bilirubin Not Reportable 02/08/20 02:32 Neonat Direct Bilirubin Not Reportable 02/08/20 02:32 Neonat Indirect Bili Not Reportable 02/08/20 02:32 AST 26 U/L (17-59) 02/08/20 02:32 ALT 24 U/L (<50) 02/08/20 02:32 Alkaline Phosphatase 157 U/L (38-126) H 02/08/20 02:32 Troponin I < 0.012 ng/mL 02/08/20 02:32 NT-Pro-B Natriuret Pep < 11 pg/mL (<125) 02/07/20 20:25 Total Protein 7.1 g/dL (6.3-8.2) 02/08/20 02:32 Albumin 3.5 g/dL (3.5-5.0) 02/08/20 02:32 Triglycerides 183 mg/dL (<150) H 02/08/20 02:32 Cholesterol 183.03 mg/dL (0-200) 02/08/20 02:32 LDL Cholesterol Direct 126 mg/dL (<100) H 02/08/20 02:32 VLDL Cholesterol 36.6 mg/dL (10-31) H 02/08/20 02:32 HDL Cholesterol 20 mg/dL (>40) L 02/08/20 02:32 Amylase 59 U/L (30-110) 02/08/20 02:32 Lipase 150.2 U/L (23-300) 02/07/20 12:22 TSH 1.11 uIU/mL (0.47-4.68) 02/08/20 02:32 Urine Color COLORLESS 02/07/20 12:22 Urine Appearance CLEAR 02/07/20 12:22 Urine pH 6.0 (5.0-9.0) 02/07/20 12:22 Ur Specific [place] 1.027 02/07/20 12:22 Urine Protein NEGATIVE mg/dL (NEGATIVE) 02/07/20 12:22 Urine Glucose (UA) >=500 mg/dL (NEGATIVE) H 02/07/20 12:22 Urine Ketones TRACE mg/dL (NEGATIVE) H 02/07/20 12:22 Urine Blood NEGATIVE (NEGATIVE) 02/07/20 12:22 Urine Nitrite NEGATIVE (NEGATIVE) 02/07/20 12:22 Urine Bilirubin NEGATIVE (NEGATIVE) 02/07/20 12:22 Urine Urobilinogen NEGATIVE mg/dL (<2.0) 02/07/20 12:22 Ur Leukocyte Esterase NEGATIVE (NEGATIVE) 02/07/20 12:22 Urine WBC (Auto) 0 /HPF 02/07/20 12:22 Urine Mucus (Auto) RARE /LPF 02/07/20 12:22 Urine Ascorbic Acid NEGATIVE (NEGATIVE) 02/07/20 12:22 02/07/20 02/07/20 02/07/20 12:22 20:25 20:25 Troponin I < 0.012 < 0.012 NT-Pro-B Natriuret Pep < 11 02/08/20 02:32 Troponin I < 0.012 NT-Pro-B Natriuret Pep Plan Time Spent: Greater than 30 Minutes Stroke Is this a Stroke Patient?: No Acute Heart Failure Is this a Heart Failure Patient?: No
[2020-02-09 17:40] VITALS: BP 145/98
== END 2020-02-09 18:30 | disposition home or self-care (01) | DRG 638 ==
LOC: ER 11:08 → EH 14:03 → 3S 02-08 00:38
PROVIDERS: ADMIT Internal Medicine; ATTEND Internal Medicine
DX: E11.10 Type 2 diabetes mellitus with ketoacidosis without coma (principal); N17.9 Acute kidney failure, unspecified; E87.1 Hypo-osmolality and hyponatremia; E87.5 Hyperkalemia; Z83.3 Family history of diabetes mellitus
CPT/HCPCS: 36415; 80053; 80061; 81001; 82150; 82803; 82962; 83036; 83690; 83735; 83880; 84443; 84484; 85025; 90471; 90686; 93005; 93010; 96361; 96374; 99285; G0008; J1650; J1815; J3490; J7030; J7050

== ENCOUNTER 2020-02-18 21:02 | Inpatient (IN) | payer SELFPAY ==
--- NOTE | 2020-02-18 21:29 | ER Document Report ---
ED Medical Screen (RME) - General Chief Complaint: High Blood Sugar Stated Complaint: POSSIBLE HIGH BLOOD SUGAR Time Seen by Provider: 02/18/20 21:21 Mode of Arrival: Wheelchair Information source: Patient Notes: 24-year-old male presented to ED for, elevated blood sugar. He states he took his Accu-Chek yesterday and his sugar was 526. He states he had severe urinary frequency and thirst but has not had any insulin since he was discharged from his previous admission for DKA. He states he was not sent home with any medications or supplies except for the glucometer supplies. He states he has not checked his sugar since yesterday. We did do Accu-Chek in the pit area and he is read high twice. We will get him started with some IV fluids and he will go back to the main ED for another provider exam. Patient is very groggy very slow speech. He is awake and able to answer questions though. I have greeted and performed a rapid initial assessment of this patient. A comprehensive ED assessment and evaluation of the patient, analysis of test results and completion of medical decision making process will be conducted by an additional ED providers. - Related Data Allergies/Adverse Reactions: No Known Allergies Allergy (Verified 02/07/20 12:04) Past Medical History Psychiatric Medical History: Denies: Hx Depression
[2020-02-18] MEDS: NORMAL SALINE 1000 ML 1,000 ML IV PRN ×2 (22:00→22:25)
--- NOTE | 2020-02-18 22:11 | EKG REPORT ---
SEVERITY:- ABNORMAL ECG - SINUS TACHYCARDIA PROBABLE LEFT ATRIAL ABNORMALITY PROBABLE LEFT VENTRICULAR HYPERTROPHY ST ELEV, PROBABLE NORMAL EARLY REPOL PATTERN PROLONGED QT INTERVAL : Confirmed by: Olegario Crawford MD 18-Feb-2020 22:10:37
[2020-02-18 22:23] LABS: ABSOLUTE BASOPHILS # (AUTO) 0.1 10^3/uL (0.0-0.2); ABSOLUTE LYMPHOCYTES (AUTO) 0.7 10^3/uL (0.5-4.7); ABSOLUTE MONOCYTES (AUTO) 0.5 10^3/uL (0.1-1.4); ABSOLUTE NEUT (AUTO) 6.1 10^3/uL (1.7-8.2); BASOPHILS % (AUTO) 0.7 % (0-2); HEMATOCRIT 54.7 % (37.9-51.0); HEMOGLOBIN 16.5 g/dL (13.5-17.0); LYMPHOCYTES % (AUTO) 9.9 % (13-45); MEAN CORPUSCULAR HEMOGLOBIN 26.5 pg (27.0-33.4); MEAN CORPUSCULAR HGB CONC 30.2 g/dL (32.0-36.0); MONOCYTES % (AUTO) 6.4 % (3-13); PLATELET COUNT 409 10^3/uL (150-450); RED BLOOD COUNT 6.24 10^6/uL (4.35-5.55); RED CELL DISTRIBUTION WIDTH 18.7 % (11.5-14.0); TOTAL CELLS COUNTED % (AUTO) 100 %; WHITE BLOOD COUNT 7.3 10^3/uL (4.0-10.5)
[2020-02-18 22:29] LABS: VENOUS BLOOD BASE EXCESS -18.4 mmol/L; VENOUS BLOOD HCO3 9.6 mmol/L (20-32); VENOUS BLOOD PCO2 30.5 mmHg (35-63)
[2020-02-18 22:32] LABS: VENOUS BLOOD PH 7.12 (7.30-7.42)
[2020-02-18 22:44] LABS: ALKALINE PHOSPHATASE 254 U/L (38-126); ASPARTATE AMINO TRANSFERASE 15 U/L (17-59); BILIRUBIN,DIRECT 0.3 mg/dL (0.0-0.4); BILIRUBIN,TOTAL 0.5 mg/dL (0.2-1.3); BLOOD UREA NITROGEN 36 mg/dL (7-20); TOTAL PROTEIN 9.8 g/dL (6.3-8.2)
[2020-02-18 22:47] LABS: APPEARANCE,URINE SLIGHTLY-CLOUDY; BILIRUBIN,URINE NEGATIVE (NEGATIVE); COLOR,URINE YELLOW; GLUCOSE, URINE >=500 mg/dL (NEGATIVE); KETONES,URINE 20 mg/dL (NEGATIVE); LEUKOCYTE ESTERASE,URINE NEGATIVE (NEGATIVE); NITRITE,URINE NEGATIVE (NEGATIVE); PROTEIN,URINE 30 mg/dL (NEGATIVE); URINE SPECIFIC GRAVITY 1.025; UROBILINOGEN,URINE NEGATIVE mg/dL (<2.0)
[2020-02-18 22:50] LABS: CHLORIDE 90 mmol/L (98-107)
[2020-02-18 22:51] LABS: MEAN CORPUSCULAR VOLUME 88 fl (80-97)
--- NOTE | 2020-02-18 23:00 | ER Document Report ---
ED General - General Chief Complaint: High Blood Sugar Stated Complaint: POSSIBLE HIGH BLOOD SUGAR Time Seen by Provider: 02/18/20 21:21 Mode of Arrival: Wheelchair Notes: Patient is a 24 year old male with a recently diagnosed history of diabetes that comes emergency department for chief complaint of weakness, feeling groggy, having difficulty focusing, extreme thirst, frequent urination. He states he was recently admitted to the hospital for the newly diagnosed diabetes, discharged, however he states that he only received glucometer supplies and was not sent home with any medications. He states he is supposed to follow-up with the [facility] in a few days but he was feeling so bad that his partner brought him to the emergency department tonight. He states he felt chills earlier. He denies fever, vomiting, difficulty breathing, chest pain, or any other complaints. He states he formally drank alcohol heavily but not in a few months, denies recreational drugs, denies medical history otherwise. He has a strong family history of diabetes. - Related Data Allergies/Adverse Reactions: No Known Allergies Allergy (Verified 02/07/20 12:04) Past Medical History - General Information source: Patient - Social History Smoking Status: Never Smoker Frequency of alcohol use: None Drug Abuse: None Lives with: Friend Family History: DM, Malignancy Endocrine Medical History: Reports: Hx Diabetes Mellitus Type 1 Psychiatric Medical History: Denies: Hx Depression - Immunizations Immunizations up to date: Yes Hx Diphtheria, Pertussis, Tetanus Vaccination: Yes Review of Systems - Review of Systems Constitutional: See HPI EENT: No symptoms reported Cardiovascular: No symptoms reported Respiratory: No symptoms reported Gastrointestinal: No symptoms reported Genitourinary: See HPI Male Genitourinary: No symptoms reported Musculoskeletal: No symptoms reported Skin: No symptoms reported Hematologic/Lymphatic: No symptoms reported Neurological/Psychological: No symptoms reported Physical Exam - Vital signs Vitals: Temp Pulse Resp BP Pulse Ox 97.8 F 117 H 16 140/92 H 100 02/18/20 21:21 02/18/20 21:21 02/18/20 21:21 02/18/20 21:21 02/18/20 21:21 - Notes Notes: GENERAL: Patient is sluggish, ill-appearing but still awake and cooperative HEAD: Normocephalic, atraumatic. EYES: Pupils equal, round, and reactive to light. Extraocular movements intact. ENT: Oral mucosa very parched tongue midline. Oropharynx unremarkable. Airway patent. NECK: Full range of motion. Supple. Trachea midline. No lymphadenopathy. LUNGS: Clear to auscultation bilaterally, no wheezes, rales, or rhonchi. No respiratory distress. Non-tender chest wall. HEART: Tachycardia, normal rhythm, no murmur ABDOMEN: Soft, non-tender. Non-distended. EXTREMITIES: Moves all 4 extremities spontaneously. No edema, normal radial and dorsalis pedis pulses bilaterally. No cyanosis. BACK: no cervical, thoracic, lumbar midline tenderness. No saddle anesthesia, normal distal neurovascular exam. Moves all extremities in full range of motion. NEUROLOGICAL: Alert and oriented x3. Normal speech. Cranial nerves II through XII grossly intact. Strength 5/5 in all extremities. PSYCH: Normal affect, normal mood. SKIN: Warm, dry, normal turgor. No rashes or lesions noted. Course - Re-evaluation Re-evalutation: On my evaluation patient is ill-appearing, tachycardic, has extremely dry mucous membranes. Accu-Chek is reading is high. By my evaluation patient had received most of a 2 L normal saline bolus. Patient will be given lactated Ringer's. CBC unremarkable, chemistry shows very low bicarbonate, potassium was 6.3, elevated anion gap, glucose in the 900s. Venous blood gas shows pH of 7.12 with metabolic acidosis. Clinical evaluation is consistent with type 1 diabetes with DKA. Patient given 10 units IV insulin bolus, calcium gluconate. Patient has very peaked T waves on EKG although QTC is not significantly prolonged. Patient will be placed on insulin drip at 0.1 units/kg/h and will require admission. Patient states appreciation and agreement. Wentback in the room, patient began vomiting, he was given Zofran and stopped. Discussed with Dr. Davison, hospitalist, he evaluated the patient, patient will be admitted to [facility] full admission. - Vital Signs Vital signs: Temp Pulse Resp BP Pulse Ox 97.8 F 95 16 170/121 H 100 02/18/20 21:21 02/19/20 03:37 02/19/20 02:01 02/19/20 02:00 02/19/20 02:01 - Laboratory Result Diagrams: 02/18/20 22:00 02/19/20 00:28 Laboratory results interpreted by me: 02/18/20 02/18/20 02/18/20 22:00 22:00 22:00 RBC 6.24 H Hct 54.7 H MCH 26.5 L MCHC 30.2 L RDW 18.7 H Lymph % (Auto) 9.9 L Seg Neutrophils % 83.0 H VBG pH 7.12 L* VBG pCO2 30.5 L VBG HCO3 9.6 L Sodium 131.9 L Potassium 6.3 H* Chloride 90 L Carbon Dioxide 7 L* Anion Gap 35 H BUN 36 H Creatinine 2.54 H Est GFR ( Amer) 38 L Est GFR (MDRD) Non-Af 31 L Glucose 934 H* Calcium 12.4 H* AST 15 L Alkaline Phosphatase 254 H Total Protein 9.8 H Urine Protein Urine Glucose (UA) Urine Ketones 02/18/20 22:20 RBC Hct MCH MCHC RDW Lymph % (Auto) Seg Neutrophils % VBG pH VBG pCO2 VBG HCO3 Sodium Potassium Chloride Carbon Dioxide Anion Gap BUN Creatinine Est GFR ( Amer) Est GFR (MDRD) Non-Af Glucose Calcium AST Alkaline Phosphatase Total Protein Urine Protein 30 H Urine Glucose (UA) >=500 H Urine Ketones 20 H - EKG Interpretation by Me Additional EKG results interpreted by me: EKG shows sinus tachycardia at a rate of 113, QTc 494, normal axis, peaked T waves anteriorly, no T wave inversions in consecutive leads. There are ST segment elevations but this appears to be J-point elevation, consistent with prior. Critical Care Note - Critical Care Note Total time excluding time spent on procedures (mins): 35 - Diabetic ketoacidosis, hyperkalemia Comments: Please allow 35 minutes of critical care time for evaluation and management of this critically ill patient. Interventions included treatment of DKA with insulin bolus and drip, treatment of hyperkalemia with insulin and calcium gluconate, aggressive fluid hydration. Time spent performing multiple reevaluations, time spent consulting and admitting to the hospital. Discharge - Discharge Clinical Impression: Hyperkalemia, Acute renal insufficiency Diabetic ketoacidosis Qualifiers: Diabetes mellitus type: type 1 Diabetes mellitus complication detail: without coma Qualified Code(s): E10.10 - Type 1 diabetes mellitus with ketoacidosis without coma Vomiting Qualifiers: Vomiting type: unspecified Vomiting Intractability: non-intractable Nausea presence: with nausea Qualified Code(s): R11.2 - Nausea with vomiting, unspecified Condition: Fair Disposition: ADMITTED INPATIENT Admitting Provider: Laney (Hospitalist) Unit Admitted: [facility]
[2020-02-18] MEDS ORDERED: RINGERS SOLUTION,LACTATED 1,000 ML IV ONE (23:03)
[2020-02-18 23:04] LABS: ANION GAP 35 (5-19); CARBON DIOXIDE 7 mmol/L (22-30); GLUCOSE 934 mg/dL (75-110); POTASSIUM 6.3 mmol/L (3.6-5.0)
[2020-02-18] MEDS ORDERED: INSULIN REG, HUMAN 100 UNIT/ML 3 ML VIAL (PYX) IV ONE ×2 (23:05→23:09)
[2020-02-18] MEDS ORDERED: CALCIUM GLUCONATE 1000 MG/10 ML INJ IV ONE (23:09)
[2020-02-18 23:14] LABS: CALCIUM 12.4 mg/dL (8.4-10.2)
[2020-02-18] MEDS ORDERED: ONDANSETRON HCL INJ/PF 4 MG/2 ML SDV IV ONE (23:27)
[2020-02-18] MEDS ORDERED: DEXTROSE 40% GEL 15 GM TUBE PO PRN ×2 (23:42)
[2020-02-18] MEDS ORDERED: DEXTROSE 50%-WATER 25 GM/50 ML DISP.SYRIN IV PRN ×2 (23:42)
[2020-02-18] MEDS ORDERED: GLUCAGON,HUMAN RECOMB 1 MG INJ IM PRN (23:42)
[2020-02-18] MEDS ORDERED: NORMAL SALINE 100 ML with INSULIN REGULAR, HUMAN 100 UNIT IV PRN ×2 (23:42)
[2020-02-18] MEDS ORDERED: ONDANSETRON HCL INJ/PF 4 MG/2 ML SDV IV PRN (23:44)
--- NOTE | 2020-02-19 00:01 | PDOC H&P ---
History of Present Illness Admission Date/PCP: 02/18/2020 History of Present Illness: FELIPE FAJARDO is a 24 year old male who is a newly diagnosed diabetic was recently in this hospital about a week and a half ago. He said he was supposed to be sent home with diabetes medications but got a prescription for glucometer and that was it. He said he was checking his blood sugar and yesterday it was really high, in the 500s. He started feeling sick at home today and was brought in by private vehicle. He was nauseated and was throwing up in the ER. He was afebrile. He was tachycardic. He has had decreased urine output. He has numerous metabolic derangements. Venous pH was 7.12, blood glucose was 932, serum bicarbonate was 7, potassium 6.3, creatinine 2.56. He was tachycardic but his vital signs were otherwise stable. His sodium was 131, but his blood glucose was extremely high so his corrected sodium is probably substantially elevated. He was given an order for 2 L of normal saline, he got 1 L, I disc ontinued the second liter of normal saline in favor of half-normal saline. He also got a liter of LR in the ER. Past Medical History Psychiatric Medical History: Denies: Depression Social History Smoking Status: Never Smoker Frequency of Alcohol Use: Social Hx Recreational Drug Use: No Drugs: Marijuana Hx Prescription Drug Abuse: No Family History Family History: DM, Malignancy Parental Family History Reviewed: Yes Children Family History Reviewed: NA Sibling(s) Family History Reviewed.: Yes Medication/Allergy Home Medications: Hum Insulin NPH/Reg Insulin Hm [Insulin Inj 70-30 (100 Unit/1 ml) 3 ml Vial] 1 unit SUBCUT BID 30 Days #2 vial 02/09/20 Insulin Regular, Human [Humulin R (Reg) Insulin 100 unit/mL] 0 - 12 unit SUBCUT ACHS 30 Days #2 vial 02/09/20 Allergies/Adverse Reactions: No Known Allergies Allergy (Verified 02/07/20 12:04) Review of Systems All systems: reviewed and no additional remarkable complaints except as stated - All systems were reviewed and were negative except as noted in the HPI Physical Exam Vital Signs: Temp Pulse Resp BP Pulse Ox 97.8 F 117 H 16 140/92 H 99 02/18/20 21:21 02/18/20 21:21 02/18/20 21:21 02/18/20 21:21 02/18/20 22:02 Intake & Output 02/17/20 02/18/20 02/19/20 06:59 06:59 06:59 Intake Total 1000 Balance 1000 Weight 90.1 kg General appearance: PRESENT: cooperative, disheveled, other - Moderate distress Head exam: PRESENT: atraumatic, normocephalic Eye exam: PRESENT: EOMI, PERRLA. ABSENT: conjunctival injection, nystagmus, scleral icterus Ear exam: PRESENT: normal external ear exam Mouth exam: PRESENT: dry mucosa, neck supple Neck exam: PRESENT: full ROM. ABSENT: carotid bruit, JVD, lymphadenopathy, meningismus, tenderness, thyromegaly Respiratory exam: PRESENT: clear to auscultation arnold, symmetrical, unlabored. ABSENT: accessory muscle use, chest wall tenderness, crackles, prolonged expiratory phas, rhonchi, tachypnea, wheezes Cardiovascular exam: PRESENT: +S1, +S2, tachycardia Pulses: PRESENT: normal carotid pulses Vascular exam: PRESENT: normal capillary refill GI/Abdominal exam: PRESENT: hyperactive bowel sounds, soft. ABSENT: distended, guarding, rebound, tenderness Extremities exam: ABSENT: clubbing, pedal edema Musculoskeletal exam: PRESENT: normal inspection. ABSENT: deformity Neurological exam: PRESENT: awake, oriented to person, oriented to place, oriented to situation, CN II-XII grossly intact. ABSENT: motor sensory deficit Psychiatric exam: PRESENT: flat affect Skin exam: PRESENT: dry, warm Results Laboratory Results: 02/18/20 22:00 02/18/20 22:00 02/18/20 02/18/20 02/18/20 22:00 22:00 22:00 WBC 7.3 RBC 6.24 H Hgb 16.5 Hct 54.7 H MCV 88 D MCH 26.5 L MCHC 30.2 L RDW 18.7 H Plt Count 409 Seg Neutrophils % 83.0 H VBG pH 7.12 L* VBG pCO2 30.5 L VBG HCO3 9.6 L VBG Base Excess -18.4 Sodium 131.9 L Potassium 6.3 H* Chloride 90 L Carbon Dioxide 7 L* Anion Gap 35 H BUN 36 H Creatinine 2.54 H Est GFR ( Amer) 38 L Glucose 934 H* Calcium 12.4 H* Total Bilirubin 0.5 AST 15 L Alkaline Phosphatase 254 H Total Protein 9.8 H Albumin 5.0 Urine Color Urine Appearance Urine pH Ur Specific [place] Urine Protein Urine Glucose (UA) Urine Ketones Urine Blood Urine Nitrite Ur Leukocyte Esterase Urine WBC (Auto) Urine RBC (Auto) 02/18/20 22:20 WBC RBC Hgb Hct MCV MCH MCHC RDW Plt Count Seg Neutrophils % VBG pH VBG pCO2 VBG HCO3 VBG Base Excess Sodium Potassium Chloride Carbon Dioxide Anion Gap BUN Creatinine Est GFR ( Amer) Glucose Calcium Total Bilirubin AST Alkaline Phosphatase Total Protein Albumin Urine Color YELLOW Urine Appearance SLIGHTLY-CLOUDY Urine pH 5.0 Ur Specific [place] 1.025 Urine Protein 30 H Urine Glucose (UA) >=500 H Urine Ketones 20 H Urine Blood NEGATIVE Urine Nitrite NEGATIVE Ur Leukocyte Esterase NEGATIVE Urine WBC (Auto) 1 Urine RBC (Auto) 0 Assessment and Plan - Diagnosis (1) Diabetic ketoacidosis Qualifiers: Diabetes mellitus type: type 1 Diabetes mellitus complication detail: without coma Qualified Code(s): E10.10 - Type 1 diabetes mellitus with ketoacidosis without coma Is this a current diagnosis for this admission?: Yes (2) Acute kidney injury Is this a current diagnosis for this admission?: Yes (3) Metabolic acidosis Is this a current diagnosis for this admission?: Yes (4) Dehydration Is this a current diagnosis for this admission?: Yes (5) Hyperkalemia Is this a current diagnosis for this admission?: Yes (6) Vomiting Qualifiers: Vomiting type: unspecified Vomiting Intractability: non-intractable Nausea presence: with nausea Qualified Code(s): R11.2 - Nausea with vomiting, unspecified Is this a current diagnosis for this admission?: Yes (7) LAITH (acute kidney injury) Is this a current diagnosis for this admission?: Yes - Plan Summary Summary: He has a pseudohyponatremia due to the profound elevation in his blood glucose. His actual serum sodium is probably much higher. I have elected to go with half-normal saline. We will check a metabolic panel every 4 hours, with Accu- Cheks every hour while he is on an insulin drip. When his potassium drops down to around 5, we will add some potassium to his fluids. When his glucose drops below 200, will add dextrose to the fluid. He will be n.p.o. for now. I will let him have some ice chips if he feels like it, but he is pretty nauseated right now. Zofran is ordered. With all the vomiting he is done, I have ordered Protonix IV every 12 hours. We will monitor his urine output closely. - Time Time Spent with patient: 35 or more minutes Anticipated Discharge Disposition: Home, Self Care Anticipated Discharge Timeframe: Unknown - Inpatient Certification Based on my medical assessment, after consideration of the patient's comorbidities, presenting symptoms, or acuity I expect that the services needed warrant INPATIENT care.: Yes I certify that my determination is in accordance with my understanding of Medicare's requirements for reasonable and necessary INPATIENT services [42 CFR 412.3e].: Yes Medical Necessity: Significant Comorbidiites Make Outpatient Treatment Too Risky, Need Close Monitoring Due to Risk of Patient Decompensation, Need For IV Fluids, Need For Continuous Telemetry Monitoring, Risk of Complication if Not Cared For in Hospital
[2020-02-19] MEDS: PANTOPRAZOLE SODIUM 40 MG VIAL IV SCH ×3 (00:06→21:49)
[2020-02-19] MEDS: 1/2 NORMAL SALINE 1,000 ML IV PRN ×3 (00:06→09:30)
[2020-02-19 01:11] LABS: BLOOD UREA NITROGEN 34 mg/dL (7-20); CALCIUM 11.6 mg/dL (8.4-10.2)
[2020-02-19 01:16] LABS: CHLORIDE 102 mmol/L (98-107)
[2020-02-19 01:21] LABS: GLUCOSE 699 mg/dL (75-110); POTASSIUM 5.3 mmol/L (3.6-5.0)
[2020-02-19 01:22] LABS: ANION GAP 30 (5-19); CARBON DIOXIDE 8 mmol/L (22-30)
[2020-02-19] MEDS ORDERED: ACETAMINOPHEN 325 MG TABLET PO ONE (05:00)
[2020-02-19 05:56] LABS: ARTERIAL BLOOD BASE EXCESS -12.4 mmol/L; ARTERIAL BLOOD H2CO3 0.97 mmol/L (1.05-1.35); ARTERIAL BLOOD HCO3 13.6 mmol/L (20-24); ARTERIAL BLOOD O2 SATURATION 93.1 % (94-98); ARTERIAL BLOOD PCO2 32.3 mmHg (35-45); ARTERIAL BLOOD PH 7.24 (7.35-7.45); ARTERIAL BLOOD PO2 75.7 mmHg (80-100); ARTERIAL BLOOD TOTAL CO2 14.6 mmol/L (23-27)
[2020-02-19 06:00] LABS: ARTERIAL BLOOD FIO2 ROOM AIR
[2020-02-19] MEDS: HEPARIN SOD (PORCINE) 5,000 UNIT/ML 1 ML VIAL SUBCUT SCH ×3 (06:16→21:48)
[2020-02-19 07:50] LABS: HEMATOCRIT 44.5 % (37.9-51.0); HEMOGLOBIN 14.6 g/dL (13.5-17.0); MEAN CORPUSCULAR HEMOGLOBIN 26.4 pg (27.0-33.4); MEAN CORPUSCULAR HGB CONC 32.8 g/dL (32.0-36.0); PLATELET COUNT 358 10^3/uL (150-450); RED BLOOD COUNT 5.52 10^6/uL (4.35-5.55); RED CELL DISTRIBUTION WIDTH 17.2 % (11.5-14.0); WHITE BLOOD COUNT 7.5 10^3/uL (4.0-10.5)
[2020-02-19 08:04] LABS: BLOOD UREA NITROGEN 30 mg/dL (7-20); CALCIUM 11.5 mg/dL (8.4-10.2); GLUCOSE 290 mg/dL (75-110); POTASSIUM 4.5 mmol/L (3.6-5.0)
[2020-02-19 08:09] LABS: CARBON DIOXIDE 15 mmol/L (22-30); CHLORIDE 106 mmol/L (98-107)
[2020-02-19 08:11] LABS: MEAN CORPUSCULAR VOLUME 81 fl (80-97)
[2020-02-19 08:15] LABS: ANION GAP 20 (5-19)
[2020-02-19] MEDS: INSULIN GLARGINE,HUM.REC.ANLOG 1,000 UNIT/10 ML VIAL SUBCUT SCH ×2 (09:57→21:48)
[2020-02-19 12:17] LABS: ANION GAP 15 (5-19); BLOOD UREA NITROGEN 28 mg/dL (7-20); CALCIUM 11.1 mg/dL (8.4-10.2); CARBON DIOXIDE 16 mmol/L (22-30); CHLORIDE 106 mmol/L (98-107); GLUCOSE 188 mg/dL (75-110); POTASSIUM 4.4 mmol/L (3.6-5.0)
[2020-02-19 15:43] LABS: ANION GAP 17 (5-19); BLOOD UREA NITROGEN 28 mg/dL (7-20); CALCIUM 10.7 mg/dL (8.4-10.2); CARBON DIOXIDE 15 mmol/L (22-30); CHLORIDE 103 mmol/L (98-107); GLUCOSE 331 mg/dL (75-110); POTASSIUM 4.7 mmol/L (3.6-5.0)
[2020-02-19] MEDS: INSULIN LISPRO 100 UNIT/ML 3 ML VIAL SUBCUT SCH ×3 (16:54→21:48)
--- NOTE | 2020-02-19 17:23 | PDOC PROGRESS REPORT ---
Subjective Date:: 02/19/20 Subjective:: FELIPE FAJARDO is a 24 year old male who is a newly diagnosed diabetic was recentl y in this hospital about a week and a half ago. He said he was supposed to be sent home with diabetes medications but got a prescription for glucometer and that was it. He said he was checking his blood sugar and yesterday it was really high, in the 500s. He started feeling sick at home today and was brought in by private vehicle. He was nauseated and was throwing up in the ER. He was afebrile. He was tachycardic. He has had decreased urine output. He has numerous metabolic derangements. Venous pH was 7.12, blood glucose was 932, serum bicarbonate was 7, potassium 6.3, creatinine 2.56. He was tachycardic but his vital signs were otherwise stable. His sodium was 131, but his blood glucose was extremely high so his corrected sodium is probably substantially elevated. He was given an order for 2 L of normal saline, he got 1 L, I discontinued the second liter of normal saline in favor of half-normal saline. He also got a liter of LR in the ER. D2 Hospital stay 02/19/20 HE was seen and examined at bedside. Nausea has resolved and is able to eat some. AG has closed and he has been transitioned to basal/bolus with SSI. I have asked him about his meds and he said it was sent to [facility] where it costs more that's why he was not able to get it. I have consulted discharge planning to help with this issue when he gets discharged. I have changed his preferred pharmacy to [facility]. Can consider 70/30 for his insulin on discharge if cost is really an issue. Reason For Visit: DKA, HYPERKALEMIA, LAITH, METABOLIC ACIDOSIS Physical Exam Vital Signs: Temp Pulse Resp BP Pulse Ox 98.0 F 100 17 146/90 H 100 02/19/20 16:26 02/19/20 16:26 02/19/20 16:26 02/19/20 16:26 02/19/20 16:26 Intake & Output 02/18/20 02/19/20 02/20/20 06:59 06:59 06:59 Intake Total 3043 1502 Output Total 400 375 Balance 2643 1127 Weight 89.7 kg General appearance: PRESENT: no acute distress, cooperative Head exam: PRESENT: atraumatic, normocephalic Eye exam: PRESENT: EOMI, PERRLA Mouth exam: PRESENT: moist Neck exam: PRESENT: full ROM Respiratory exam: PRESENT: clear to auscultation arnold, symmetrical, unlabored Cardiovascular exam: PRESENT: RRR, +S1, +S2 GI/Abdominal exam: PRESENT: normal bowel sounds, soft. ABSENT: rebound, tenderness Extremities exam: PRESENT: full ROM Musculoskeletal exam: PRESENT: full ROM Neurological exam: PRESENT: alert, awake, oriented to person, oriented to place, oriented to time, oriented to situation Psychiatric exam: PRESENT: normal mood Skin exam: PRESENT: normal color Results Laboratory Results: 02/19/20 07:32 02/19/20 14:39 02/18/20 02/18/20 02/18/20 22:00 22:00 22:00 WBC 7.3 RBC 6.24 H Hgb 16.5 Hct 54.7 H MCV 88 D MCH 26.5 L MCHC 30.2 L RDW 18.7 H Plt Count 409 Seg Neutrophils % 83.0 H Carbonic Acid HCO3/H2CO3 Ratio ABG pH ABG pCO2 ABG pO2 ABG HCO3 ABG O2 Saturation ABG Base Excess VBG pH 7.12 L* VBG pCO2 30.5 L VBG HCO3 9.6 L VBG Base Excess -18.4 FiO2 Sodium 131.9 L Potassium 6.3 H* Chloride 90 L Carbon Dioxide 7 L* Anion Gap 35 H BUN 36 H Creatinine 2.54 H Est GFR ( Amer) 38 L Glucose 934 H* Calcium 12.4 H* Magnesium Total Bilirubin 0.5 AST 15 L Alkaline Phosphatase 254 H Total Protein 9.8 H Albumin 5.0 PTH Intact Urine Color Urine Appearance Urine pH Ur Specific [place] Urine Protein Urine Glucose (UA) Urine Ketones Urine Blood Urine Nitrite Ur Leukocyte Esterase Urine WBC (Auto) Urine RBC (Auto) 02/18/20 02/19/20 02/19/20 22:20 00:28 05:25 WBC RBC Hgb Hct MCV MCH MCHC RDW Plt Count Seg Neutrophils % Carbonic Acid 0.97 L HCO3/H2CO3 Ratio 14:1 ABG pH 7.24 L ABG pCO2 32.3 L ABG pO2 75.7 L ABG HCO3 13.6 L ABG O2 Saturation 93.1 L ABG Base Excess -12.4 VBG pH VBG pCO2 VBG HCO3 VBG Base Excess FiO2 ROOM AIR Sodium 140.0 Potassium 5.3 H D Chloride 102 Carbon Dioxide 8 L* Anion Gap 30 H BUN 34 H Creatinine 2.09 H Est GFR ( Amer) 47 L Glucose 699 H* Calcium 11.6 H Magnesium Total Bilirubin AST Alkaline Phosphatase Total Protein Albumin PTH Intact Urine Color YELLOW Urine Appearance SLIGHTLY-CLOUDY Urine pH 5.0 Ur Specific [place] 1.025 Urine Protein 30 H Urine Glucose (UA) >=500 H Urine Ketones 20 H Urine Blood NEGATIVE Urine Nitrite NEGATIVE Ur Leukocyte Esterase NEGATIVE Urine WBC (Auto) 1 Urine RBC (Auto) 0 02/19/20 02/19/20 02/19/20 07:32 07:32 11:41 WBC 7.5 RBC 5.52 Hgb 14.6 Hct 44.5 MCV 81 D MCH 26.4 L MCHC 32.8 RDW 17.2 H Plt Count 358 Seg Neutrophils % Carbonic Acid HCO3/H2CO3 Ratio ABG pH ABG pCO2 ABG pO2 ABG HCO3 ABG O2 Saturation ABG Base Excess VBG pH VBG pCO2 VBG HCO3 VBG Base Excess FiO2 Sodium 140.5 137.1 Potassium 4.5 4.4 Chloride 106 106 Carbon Dioxide 15 L 16 L Anion Gap 20 H 15 BUN 30 H 28 H Creatinine 1.40 H 1.28 H Est GFR ( Amer) > 60 > 60 Glucose 290 H 188 H Calcium 11.5 H 11.1 H Magnesium 2.2 Total Bilirubin AST Alkaline Phosphatase Total Protein Albumin PTH Intact Urine Color Urine Appearance Urine pH Ur Specific [place] Urine Protein Urine Glucose (UA) Urine Ketones Urine Blood Urine Nitrite Ur Leukocyte Esterase Urine WBC (Auto) Urine RBC (Auto) 02/19/20 02/19/20 11:41 14:39 WBC RBC Hgb Hct MCV MCH MCHC RDW Plt Count Seg Neutrophils % Carbonic Acid HCO3/H2CO3 Ratio ABG pH ABG pCO2 ABG pO2 ABG HCO3 ABG O2 Saturation ABG Base Excess VBG pH VBG pCO2 VBG HCO3 VBG Base Excess FiO2 Sodium 134.7 L Potassium 4.7 Chloride 103 Carbon Dioxide 15 L Anion Gap 17 BUN 28 H Creatinine 1.28 H Est GFR ( Amer) > 60 Glucose 331 H Calcium 10.7 H Magnesium Total Bilirubin AST Alkaline Phosphatase Total Protein Albumin PTH Intact 13.0 Urine Color Urine Appearance Urine pH Ur Specific [place] Urine Protein Urine Glucose (UA) Urine Ketones Urine Blood Urine Nitrite Ur Leukocyte Esterase Urine WBC (Auto) Urine RBC (Auto) Assessment and Plan - Diagnosis (1) Diabetic ketoacidosis Qualifiers: Diabetes mellitus type: type 1 Diabetes mellitus complication detail: without coma Qualified Code(s): E10.10 - Type 1 diabetes mellitus with ketoacidosis without coma Is this a current diagnosis for this admission?: Yes Plan: - recent dx of Diabetes and has been off insulin since being discharged 10 days ago - +ve nausea and abdominal pain - BG >500 in the ED, +ve urine ketones, pH 7.12 - AG 35>17 - K 6.3>4.7. receibed Ca gluconate for hyperkalemia - received insulin drip eventually transitioned to lantus 25 BID and humalog 6 u with meals with SSI - placed on carb controlled diet - Accucheck ACHS - hypoglycemia protocol (2) New onset type 2 diabetes mellitus Is this a current diagnosis for this admission?: Yes Plan: - diagnosed 2 weeks ago - +ve family hx mom, dad and sister - never tested fro IA and MARIAN - ordered anti IA and anti MARIAN to rule out type 1 - continue insulin basal bolus - clinical trial educator consult placed - (3) Hyperkalemia Is this a current diagnosis for this admission?: Yes Plan: - K 6.3>4.7 - received Ca gluconate in the ED - will CTM (4) Metabolic acidosis Is this a current diagnosis for this admission?: Yes (5) LAITH (acute kidney injury) Is this a current diagnosis for this admission?: Yes Plan: - Crea 1.28 - continue NS (6) Hyponatremia Is this a current diagnosis for this admission?: Yes Plan: - pseudohyponatremia - will CTM (7) Hypercalcemia Is this a current diagnosis for this admission?: Yes Plan: - Ca 11.1>10.7 - should improve with hydration and also likely due to ca gluconate given - ordered PTH and Vitamin D level - Plan Summary Summary: . - Time Time Spent with patient: 25-34 minutes Medications reviewed and adjusted accordingly: Yes Anticipated Discharge Disposition: Home, Self Care Anticipated Discharge Timeframe: TBD
[2020-02-19] MEDS: NORMAL SALINE 1000 ML 1,000 ML IV PRN (19:34)
[2020-02-19] MEDS ORDERED: INSULIN LISPRO 100 UNIT/ML 3 ML VIAL SUBCUT SCH ×2 (22:00)
[2020-02-20] MEDS: NORMAL SALINE 1000 ML 1,000 ML IV PRN (05:23)
[2020-02-20] MEDS: HEPARIN SOD (PORCINE) 5,000 UNIT/ML 1 ML VIAL SUBCUT SCH ×3 (05:23→22:04)
[2020-02-20 05:58] LABS: HEMATOCRIT 35.9 % (37.9-51.0); MEAN CORPUSCULAR HEMOGLOBIN 26.8 pg (27.0-33.4); MEAN CORPUSCULAR HGB CONC 33.7 g/dL (32.0-36.0); MEAN CORPUSCULAR VOLUME 79 fl (80-97); PLATELET COUNT 242 10^3/uL (150-450); RED BLOOD COUNT 4.51 10^6/uL (4.35-5.55); RED CELL DISTRIBUTION WIDTH 17.5 % (11.5-14.0); WHITE BLOOD COUNT 3.9 10^3/uL (4.0-10.5)
[2020-02-20 06:02] LABS: HEMOGLOBIN 12.1 g/dL (13.5-17.0)
[2020-02-20] MEDS: INSULIN LISPRO 100 UNIT/ML 3 ML VIAL SUBCUT SCH ×7 (08:15→22:05)
[2020-02-20] MEDS: PANTOPRAZOLE SODIUM 40 MG VIAL IV SCH ×2 (09:30→22:04)
[2020-02-20] MEDS: INSULIN GLARGINE,HUM.REC.ANLOG 1,000 UNIT/10 ML VIAL SUBCUT SCH ×2 (09:30→22:04)
[2020-02-20 10:09] LABS: ALBUMIN 3.1 g/dL (3.5-5.0); ALKALINE PHOSPHATASE 148 U/L (38-126); ANION GAP 10 (5-19); ASPARTATE AMINO TRANSFERASE 15 U/L (17-59); BILIRUBIN,DIRECT 0.1 mg/dL (0.0-0.4); BILIRUBIN,TOTAL 0.6 mg/dL (0.2-1.3); BLOOD UREA NITROGEN 21 mg/dL (7-20); CALCIUM 10.4 mg/dL (8.4-10.2); CARBON DIOXIDE 18 mmol/L (22-30); CHLORIDE 106 mmol/L (98-107); GLUCOSE 305 mg/dL (75-110); TOTAL PROTEIN 6.6 g/dL (6.3-8.2)
[2020-02-20] MEDS ORDERED: NORMAL SALINE 1000 ML 1,000 ML IV PRN (11:18)
--- NOTE | 2020-02-20 11:18 | PDOC PROGRESS REPORT ---
Subjective Date:: 02/20/20 Subjective:: 24 year old male who is a newly diagnosed diabetic was recently in this hospita about a week and a half ago. He said he was supposed to be sent home with diabetes medications but got a prescription for glucometer and that was it. He said he was checking his blood sugar and yesterday it was really high, in the 500s. He started feeling sick at home today and was brought in by private vehicle. He was nauseated and was throwing up in the ER. He was afebrile. He was tachycardic. He has had decreased urine output. He has numerous metabolic derangements. Venous pH was 7.12, blood glucose was 932, serum bicarbonate was 7, potassium 6.3, creatinine 2.56. He was tachycardic but his vital signs were otherwise stable. His sodium was 131, but his blood glucose was extremely high so his corrected sodium is probably substantially elevated. He was given an order for 2 L of normal saline, he got 1 L, I discontinued the second liter of normal saline in favor of half-normal saline. He also got a liter of LR in the ER. 02/20/2020-patient is comfortably in the bed communicating well. Not in distress. Latest blood sugar is 265. Patient is presently on Lantus 25 units every 12 hours, lispro 6 units before meals. He is also on a lispro sliding scale before meals and at bedtime. He is also receiving IV fluids at this time. Reason For Visit: DKA, HYPERKALEMIA, LAITH, METABOLIC ACIDOSIS Physical Exam Vital Signs: Temp Pulse Resp BP Pulse Ox 99.1 F 90 17 155/90 H 100 02/20/20 07:49 02/20/20 07:49 02/20/20 07:49 02/20/20 07:49 02/20/20 07:49 Intake & Output 02/19/20 02/20/20 02/21/20 06:59 06:59 06:59 Intake Total 3043 3784 240 Output Total 400 1450 800 Balance 2643 2334 -560 Weight 89.7 kg 95 kg General appearance: PRESENT: no acute distress Head exam: PRESENT: atraumatic Eye exam: PRESENT: PERRLA Mouth exam: PRESENT: moist, tongue midline Neck exam: ABSENT: carotid bruit, JVD, lymphadenopathy, thyromegaly Respiratory exam: PRESENT: clear to auscultation arnold. ABSENT: rales, rhonchi, wheezes Cardiovascular exam: PRESENT: RRR. ABSENT: diastolic murmur, rubs, systolic murmur GI/Abdominal exam: PRESENT: normal bowel sounds, soft. ABSENT: distended, guarding, mass, organolmegaly, rebound, tenderness Rectal exam: PRESENT: deferred Extremities exam: PRESENT: full ROM. ABSENT: calf tenderness, clubbing, pedal edema Neurological exam: PRESENT: alert, awake, oriented to person, oriented to place, oriented to time, oriented to situation, CN II-XII grossly intact. ABSENT: motor sensory deficit Psychiatric exam: PRESENT: appropriate affect, normal mood. ABSENT: homicidal ideation, suicidal ideation Results Laboratory Results: 02/20/20 05:38 02/20/20 05:38 02/19/20 02/19/20 02/19/20 11:41 11:41 14:39 WBC RBC Hgb Hct MCV MCH MCHC RDW Plt Count Sodium 137.1 134.7 L Potassium 4.4 4.7 Chloride 106 103 Carbon Dioxide 16 L 15 L Anion Gap 15 17 BUN 28 H 28 H Creatinine 1.28 H 1.28 H Est GFR ( Amer) > 60 > 60 Glucose 188 H 331 H Calcium 11.1 H 10.7 H Magnesium Total Bilirubin AST Alkaline Phosphatase Total Protein Albumin PTH Intact 13.0 02/20/20 02/20/20 02/20/20 05:38 05:38 05:38 WBC 3.9 L RBC 4.51 Hgb 12.1 L D Hct 35.9 L MCV 79 L MCH 26.8 L MCHC 33.7 RDW 17.5 H Plt Count 242 Sodium 133.7 L Potassium 4.0 Chloride 106 Carbon Dioxide 18 L Anion Gap 10 BUN 21 H Creatinine 1.06 Est GFR ( Amer) > 60 Glucose 305 H Calcium 10.4 H Magnesium 2.0 Total Bilirubin 0.6 AST 15 L Alkaline Phosphatase 148 H Total Protein 6.6 Albumin 3.1 L PTH Intact Assessment and Plan - Diagnosis (1) Diabetic ketoacidosis Qualifiers: Diabetes mellitus type: type 1 Diabetes mellitus complication detail: without coma Qualified Code(s): E10.10 - Type 1 diabetes mellitus with ketoacidosis without coma Is this a current diagnosis for this admission?: Yes Plan: - recent dx of Diabetes and has been off insulin since being discharged 10 days ago - +ve nausea and abdominal pain - BG >500 in the ED, +ve urine ketones, pH 7.12 - AG 35>17 - K 6.3>4.7. receibed Ca gluconate for hyperkalemia - received insulin drip eventually transitioned to lantus 25 BID and humalog 6 u with meals with SSI - placed on carb controlled diet - Accucheck ACHS - hypoglycemia protocol 02/20/2020-latest blood sugar is 265. Nausea and abdominal pain resolved. Gently on Lantus 25 units twice a day, lispro 6 units prior to meals, insulin sliding scale. Patient is feeling better. He prefers to stay another day for better control of the blood sugars. He also like to know the tins[place] of 70/30 insulin. (2) New onset type 2 diabetes mellitus Is this a current diagnosis for this admission?: Yes Plan: - diagnosed 2 weeks ago - +ve family hx mom, dad and sister - never tested fro IA and MARIAN - ordered anti IA and anti MARIAN to rule out type 1 - continue insulin basal bolus - family educator consult placed - (3) Metabolic acidosis Is this a current diagnosis for this admission?: Yes Plan: 02/20/2020-serum bicarb today is 18. Metabolic acidosis is resolving. (4) Acute kidney injury Is this a current diagnosis for this admission?: Yes Plan: - Crea 1.28 - continue NS 02/20/2020-serum creatinine today is 1.06. LAITH resolving. (5) Hypercalcemia Is this a current diagnosis for this admission?: Yes Plan: - Ca 11.1>10.7 - should improve with hydration and also likely due to ca gluconate given - ordered PTH and Vitamin D level 02/20/2020-serum calcium today 10.4. Improving. (6) Hyponatremia Is this a current diagnosis for this admission?: Yes Plan: - pseudohyponatremia - will CTM - Plan Summary Summary: . - Time Anticipated Discharge Disposition: Home, Self Care Anticipated Discharge Timeframe: within 24 hours
[2020-02-21] MEDS: HEPARIN SOD (PORCINE) 5,000 UNIT/ML 1 ML VIAL SUBCUT SCH (06:34)
[2020-02-21] MEDS: INSULIN LISPRO 100 UNIT/ML 3 ML VIAL SUBCUT SCH ×4 (08:11→12:39)
[2020-02-21 10:36] LABS: ABSOLUTE EOSINOPHILS # (AUTO) 0.1 10^3/uL (0.0-0.6); ABSOLUTE LYMPHOCYTES (AUTO) 0.7 10^3/uL (0.5-4.7); ABSOLUTE MONOCYTES (AUTO) 0.2 10^3/uL (0.1-1.4); ABSOLUTE NEUT (AUTO) 1.3 10^3/uL (1.7-8.2); BASOPHILS % (AUTO) 1.2 % (0-2); EOSINOPHILS % (AUTO) 3.9 % (0-6); HEMATOCRIT 32.9 % (37.9-51.0); HEMOGLOBIN 10.9 g/dL (13.5-17.0); LYMPHOCYTES % (AUTO) 27.6 % (13-45); MEAN CORPUSCULAR HEMOGLOBIN 26.5 pg (27.0-33.4); MEAN CORPUSCULAR HGB CONC 33.1 g/dL (32.0-36.0); MEAN CORPUSCULAR VOLUME 80 fl (80-97); MONOCYTES % (AUTO) 10.3 % (3-13); PLATELET COUNT 197 10^3/uL (150-450); RED CELL DISTRIBUTION WIDTH 17.2 % (11.5-14.0); TOTAL CELLS COUNTED % (AUTO) 100 %
[2020-02-21 10:50] LABS: WHITE BLOOD COUNT 2.4 10^3/uL (4.0-10.5)
[2020-02-21 10:55] LABS: ALBUMIN 2.9 g/dL (3.5-5.0); ALKALINE PHOSPHATASE 127 U/L (38-126); ANION GAP 6 (5-19); ASPARTATE AMINO TRANSFERASE 21 U/L (17-59); BILIRUBIN,DIRECT 0.2 mg/dL (0.0-0.4); BILIRUBIN,TOTAL 0.6 mg/dL (0.2-1.3); BLOOD UREA NITROGEN 12 mg/dL (7-20); CALCIUM 9.5 mg/dL (8.4-10.2); CARBON DIOXIDE 23 mmol/L (22-30); CHLORIDE 106 mmol/L (98-107); GLUCOSE 309 mg/dL (75-110); TOTAL PROTEIN 6.1 g/dL (6.3-8.2)
[2020-02-21] MEDS: INSULIN GLARGINE,HUM.REC.ANLOG 1,000 UNIT/10 ML VIAL SUBCUT SCH (11:14)
[2020-02-21] MEDS: PANTOPRAZOLE SODIUM 40 MG VIAL IV SCH (11:15)
[2020-02-21] MEDS ORDERED: POTASSIUM CHLORIDE 10 MEQ TABLET.ER PO ONE ×2 (11:25→12:30)
--- NOTE | 2020-02-21 12:02 | PDOC DISCHARGE SUMMARY ---
Impression - Admit/DC Date/PCP Admission Date/Primary Care Provider: 02/19/20 00:24 NO LOCALMD Discharge Date: 02/21/20 - Discharge Diagnosis (1) Diabetic ketoacidosis Is this a current diagnosis for this admission?: Yes (2) New onset type 2 diabetes mellitus Is this a current diagnosis for this admission?: Yes (3) Metabolic acidosis Is this a current diagnosis for this admission?: Yes (4) Acute kidney injury Is this a current diagnosis for this admission?: Yes (5) Hypercalcemia Is this a current diagnosis for this admission?: Yes (6) Hyponatremia Is this a current diagnosis for this admission?: Yes - Assessment Summary: .- recent dx of Diabetes and has been off insulin since being discharged 10 days ago - +ve nausea and abdominal pain - BG >500 in the ED, +ve urine ketones, pH 7.12 - AG 35>17 - K 6.3>4.7. receibed Ca gluconate for hyperkalemia - received insulin drip eventually transitioned to lantus 25 BID and humalog 6 u with meals with SSI - placed on carb controlled diet - Accucheck ACHS - hypoglycemia protocol 02/20/2020-latest blood sugar is 265. Nausea and abdominal pain resolved. Gently on Lantus 25 units twice a day, lispro 6 units prior to meals, insulin sliding scale. Patient is feeling better. He prefers to stay another day for better control of the blood sugars. He also like to know the tinsley of 70/30 insulin. 02/21/2020-patient admitted with DKA associated nausea and abdominal pain. Nausea and abdominal pain resolved. Presently on Lantus 25 units twice a day, lispro 6 units prior to meals. He is also insulin sliding scale. Blood sugar is 239 patient gives a prescription saline 70 3025 years twice daily and premeal insulin. Again discussed about compliance to medications and diet. Patient understood and verbalized the response. And agreed to go home today. 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 Metabolic acidosis is resolving. (4) Acute kidney injury Is this a current diagnosis for this admission?: Yes Plan: - Crea 1.28 - continue NS 02/20/2020-serum creatinine today is 1.06. LAITH resolving. (5) Hypercalcemia Is this a current diagnosis for this admission?: Yes Plan: - Ca 11.1>10.7 - should improve with hydration and also likely due to ca gluconate given - ordered PTH and Vitamin D level 02/20/2020-serum calcium today 10.4. Improving. 02/21/20-serum calcium today is 9.5. Hypercalcemia most likely secondary to dehydration. (6) Hyponatremia Is this a current diagnosis for this admission?: Yes Plan: - pseudohyponatremia - will CTM - Additional Information Discharge Diet: Diabetic Discharge Activity: Activity As Tolerated Referrals: [facility] [Outside] - 02/28/20 10:00 am (*this is telehealth appointment- they will call you-no office visit necessary*) Prescriptions: Insulin Lispro [Humalog Insulin (Lispro) 100 unit/mL] 6 unit SUBCUT AC 30 Days #1 vial Hum Insulin NPH/Reg Insulin Hm [Insulin Inj 70-30 (100 Unit/1 ml) 3 ml Vial] 25 unit SUBCUT BID 30 Days #2 vial Home Medications: Hum Insulin NPH/Reg Insulin Hm [Insulin Inj 70-30 (100 Unit/1 ml) 3 ml Vial] 25 unit SUBCUT BID 30 Days #2 vial 02/21/20 Insulin Lispro [Humalog Insulin (Lispro) 100 unit/mL] 6 unit SUBCUT AC 30 Days #1 vial 02/21/20 History of Present Illiness History of Present Illness: FELIPE FAJARDO is a 24 year old male 24 year old male who is a newly diagnosed diabetic was recently in this hospital about a week and a half ago. He said he was supposed to be sent home with diabetes medications but got a prescription for glucometer and that was it. He said he was checking his blood sugar and yesterday it was really high, in the 500s. He started feeling sick at home today and was brought in by private vehicle. He was nauseated and was throwing up in the ER. He was afebrile. He was tachycardic. He has had decreased urine output. He has numerous metabolic derangements. Venous pH was 7.12, blood glucose was 932, serum bicarbonate was 7, potassium 6.3, creatinine 2.56. He was tachycardic but his vital signs were otherwise stable. His sodium was 131, but his blood glucose was extremely high so his corrected sodium is probably substantially elevated. He was given an order for 2 L of normal saline, he got 1 L, I discontinued the second liter of normal saline in favor of half-normal saline. He also got a liter of LR in the ER. Hospital Course Hospital Course: 24 year old male who is a newly diagnosed diabetic was recently in this hospital about a week and a half ago. He said he was supposed to be sent home with diabetes medications but got a prescription for glucometer and that was it. He said he was checking his blood sugar and yesterday it was really high, in the 500s. He started feeling sick at home today and was brought in by private vehicle. He was nauseated and was throwing up in the ER. He was afebrile. He was tachycardic. He has had decreased urine output. He has numerous metabolic derangements. Venous pH was 7.12, blood glucose was 932, serum bicarbonate was 7, potassium 6.3, creatinine 2.56. He was tachycardic but his vital signs were otherwise stable. His sodium was 131, but his blood glucose was extremely high so his corrected sodium is probably substantially elevated. He was given an order for 2 L of normal saline, he got 1 L, I discontinued the second liter of normal saline in favor of half-normal saline. He also got a liter of LR in the ER. 02/20/2020-patient is comfortably in the bed communicating well. Not in distress. Latest blood sugar is 265. Patient is presently on Lantus 25 units every 12 hours, lispro 6 units before meals. He is also on a lispro sliding s carter before meals and at bedtime. He is also receiving IV fluids at this time. 02/21/20-no acute events in the last 24 hours. Afebrile. Latest blood sugar is 239. Patient expressing desire to go home. Given a prescription for 70/30 insulin and the patient advised to be compliant with medications and also with the diet. He was also advised to follow-up with the PCP in a few days. Physical Exam Vital Signs: Temp Pulse Resp BP Pulse Ox 98.2 F 90 16 153/94 H 100 02/21/20 07:45 02/21/20 07:45 02/21/20 07:45 02/21/20 07:45 02/21/20 07:45 Intake & Output 02/20/20 02/21/20 02/22/20 06:59 06:59 06:59 Intake Total 3784 2075 330 Output Total 1450 2800 800 Balance 2334 -725 -470 Weight 95 kg 93 kg General appearance: PRESENT: no acute distress, cooperative, well-developed Head exam: PRESENT: atraumatic Eye exam: PRESENT: PERRLA Mouth exam: PRESENT: moist, tongue midline Teeth exam: PRESENT: poor dentation Neck exam: ABSENT: carotid bruit, JVD, lymphadenopathy, thyromegaly Respiratory exam: PRESENT: decreased breath sounds Pulses: PRESENT: normal dorsalis pedis pul GI/Abdominal exam: PRESENT: normal bowel sounds, soft. ABSENT: distended, guarding, mass, organolmegaly, rebound, tenderness Rectal exam: PRESENT: deferred Extremities exam: PRESENT: full ROM. ABSENT: calf tenderness, clubbing, pedal edema Neurological exam: PRESENT: alert, awake, oriented to person, oriented to place, oriented to time, oriented to situation, CN II-XII grossly intact. ABSENT: motor sensory deficit Psychiatric exam: PRESENT: appropriate affect, normal mood. ABSENT: homicidal ideation, suicidal ideation Results Laboratory Results: WBC 2.4 10^3/uL (4.0-10.5) L D 02/21/20 09:52 RBC 4.10 10^6/uL (4.35-5.55) L 02/21/20 09:52 Hgb 10.9 g/dL (13.5-17.0) L 02/21/20 09:52 Hct 32.9 % (37.9-51.0) L 02/21/20 09:52 MCV 80 fl (80-97) 02/21/20 09:52 MCH 26.5 pg (27.0-33.4) L 02/21/20 09:52 MCHC 33.1 g/dL (32.0-36.0) 02/21/20 09:52 RDW 17.2 % (11.5-14.0) H 02/21/20 09:52 Plt Count 197 10^3/uL (150-450) 02/21/20 09:52 Lymph % (Auto) 27.6 % (13-45) 02/21/20 09:52 Bullock % (Auto) 10.3 % (3-13) 02/21/20 09:52 Eos % (Auto) 3.9 % (0-6) 02/21/20 09:52 Baso % (Auto) 1.2 % (0-2) 02/21/20 09:52 Absolute Neuts (auto) 1.3 10^3/uL (1.7-8.2) L 02/21/20 09:52 Absolute Lymphs (auto) 0.7 10^3/uL (0.5-4.7) 02/21/20 09:52 Absolute Monos (auto) 0.2 10^3/uL (0.1-1.4) 02/21/20 09:52 Absolute Eos (auto) 0.1 10^3/uL (0.0-0.6) 02/21/20 09:52 Absolute Basos (auto) 0.0 10^3/uL (0.0-0.2) 02/21/20 09:52 Seg Neutrophils % 57.0 % (42-78) 02/21/20 09:52 Platelet Estimate Cancelled 02/21/20 06:57 Carbonic Acid 0.97 mmol/L (1.05-1.35) L 02/19/20 05:25 HCO3/H2CO3 Ratio 14:1 02/19/20 05:25 ABG pH 7.24 (7.35-7.45) L 02/19/20 05:25 ABG pCO2 32.3 mmHg (35-45) L 02/19/20 05:25 ABG pO2 75.7 mmHg (80-100) L 02/19/20 05:25 ABG HCO3 13.6 mmol/L (20-24) L 02/19/20 05:25 ABG Total CO2 14.6 mmol/L (23-27) L 02/19/20 05:25 ABG O2 Saturation 93.1 % (94-98) L 02/19/20 05:25 ABG Base Excess -12.4 mmol/L 02/19/20 05:25 VBG pH 7.12 (7.30-7.42) L* 02/18/20 22:00 VBG pCO2 30.5 mmHg (35-63) L 02/18/20 22:00 VBG HCO3 9.6 mmol/L (20-32) L 02/18/20 22:00 VBG Base Excess -18.4 mmol/L 02/18/20 22:00 FiO2 ROOM AIR 02/19/20 05:25 Sodium 135.3 mmol/L (137-145) L 02/21/20 09:52 Potassium 3.0 mmol/L (3.6-5.0) L* 02/21/20 09:52 Chloride 106 mmol/L (98-107) 02/21/20 09:52 Carbon Dioxide 23 mmol/L (22-30) 02/21/20 09:52 Anion Gap 6 (5-19) 02/21/20 09:52 BUN 12 mg/dL (7-20) 02/21/20 09:52 Creatinine 0.79 mg/dL (0.52-1.25) 02/21/20 09:52 Est GFR ( Amer) > 60 (>60) 02/21/20 09:52 Est GFR (Non-Af Amer) Cancelled 02/21/20 06:57 Est GFR (MDRD) Non-Af > 60 (>60) 02/21/20 09:52 Glucose 309 mg/dL (75-110) H 02/21/20 09:52 POC Glucose 280 mg/dL (70-110) H 02/21/20 11:01 Calcium 9.5 mg/dL (8.4-10.2) 02/21/20 09:52 Magnesium 1.9 mg/dL (1.6-2.3) 02/21/20 09:52 Total Bilirubin 0.6 mg/dL (0.2-1.3) 02/21/20 09:52 Direct Bilirubin 0.2 mg/dL (0.0-0.4) 02/21/20 09:52 Neonat Total Bilirubin Not Reportable 02/21/20 09:52 Neonat Direct Bilirubin Not Reportable 02/21/20 09:52 Neonat Indirect Bili Not Reportable 02/21/20 09:52 AST 21 U/L (17-59) 02/21/20 09:52 ALT 17 U/L (<50) 02/21/20 09:52 Alkaline Phosphatase 127 U/L (38-126) H 02/21/20 09:52 Total Protein 6.1 g/dL (6.3-8.2) L 02/21/20 09:52 Albumin 2.9 g/dL (3.5-5.0) L 02/21/20 09:52 EGFR Cancelled 02/21/20 06:57 Vitamin D 25-Hydroxy 23.6 ng/mL (14.7-68.3) 02/19/20 07:32 PTH Intact 13.0 pg/mL (10.0-65.0) 02/19/20 11:41 Urine Color YELLOW 02/18/20 22:20 Urine Appearance SLIGHTLY-CLOUDY 02/18/20 22:20 Urine pH 5.0 (5.0-9.0) 02/18/20 22:20 Ur Specific Cranston 1.025 02/18/20 22:20 Urine Protein 30 mg/dL (NEGATIVE) H 02/18/20 22:20 Urine Glucose (UA) >=500 mg/dL (NEGATIVE) H 02/18/20 22:20 Urine Ketones 20 mg/dL (NEGATIVE) H 02/18/20 22:20 Urine Blood NEGATIVE (NEGATIVE) 02/18/20 22:20 Urine Nitrite NEGATIVE (NEGATIVE) 02/18/20 22:20 Urine Bilirubin NEGATIVE (NEGATIVE) 02/18/20 22:20 Urine Urobilinogen NEGATIVE mg/dL (<2.0) 02/18/20 22:20 Ur Leukocyte Esterase NEGATIVE (NEGATIVE) 02/18/20 22:20 Urine WBC (Auto) 1 /HPF 02/18/20 22:20 Urine RBC (Auto) 0 /HPF 02/18/20 22:20 U Hyaline Cast (Auto) 5 /LPF 02/18/20 22:20 Squamous Epi Cells Auto <1 /HPF 02/18/20 22:20 Urine Mucus (Auto) RARE /LPF 02/18/20 22:20 Urine Ascorbic Acid NEGATIVE (NEGATIVE) 02/18/20 22:20 Slides for Path Review Cancelled 02/21/20 06:57 Plan Time Spent: Greater than 30 Minutes Stroke Is this a Stroke Patient?: No Acute Heart Failure Is this a Heart Failure Patient?: No
[2020-02-21 13:01] VITALS: BP 149/84
== END 2020-02-21 13:33 | disposition home or self-care (01) | DRG 638 ==
LOC: ER 21:02 → EH 02-19 00:24 → 5 02-19 03:00
PROVIDERS: ADMIT Family Medicine; ATTEND Internal Medicine
DX: E11.10 Type 2 diabetes mellitus with ketoacidosis without coma (principal); N17.9 Acute kidney failure, unspecified; E87.2 Acidosis; E87.5 Hyperkalemia; E83.52 Hypercalcemia; E86.0 Dehydration
CPT/HCPCS: 36415; 36600; 80048; 80053; 81001; 82306; 82803; 82962; 83519; 83735; 83970; 85025; 85027; 86341; 93005; 93010; C9113; J0610; J1644; J1815; J2405; J7030; J7050

== ENCOUNTER 2020-02-28 14:53 | Inpatient (IN) | payer SELFPAY ==
--- NOTE | 2020-02-28 15:06 | ER Document Report ---
ED Medical Screen (RME) - General Stated Complaint: POSSIBLE HIGH BLOOD SUGAR Time Seen by Provider: 02/28/20 15:03 Primary Care Provider: ROB,MUMTAZ [Primary Care Provider] - Follow up as needed Notes: HPI: 24-year-old male with history of insulin-dependent diabetes presenting for not feeling well for 3 to 4 days. States he was here for something similar last week. Patient states his blood sugar read high today. States he does have ins ulin and believes he is taking the right dose. Has vague generalized complaints of just not feeling well but no chest pain shortness of breath abdominal pain nausea vomiting PHYSICAL EXAMINATION: No abdominal pain on palpation patient is mildly tachycardic but lung sounds are clear to auscultation I have greeted and performed a rapid initial assessment of this patient. A comprehensive ED assessment and evaluation of the patient, analysis of test results and completion of medical decision making process will be conducted by an additional ED providers. - Related Data Allergies/Adverse Reactions: No Known Allergies Allergy (Verified 02/07/20 12:04) Past Medical History Endocrine Medical History: Reports: Hx Diabetes Mellitus Type 1 Psychiatric Medical History: Denies: Hx Depression - Immunizations Immunizations up to date: Yes Hx Diphtheria, Pertussis, Tetanus Vaccination: Yes Doctor's Discharge - Discharge Referrals: ROB,NO [Primary Care Provider] - Follow up as needed
[2020-02-28] MEDS: NORMAL SALINE 1000 ML 1,000 ML IV PRN ×2 (15:48→16:51)
[2020-02-28 16:05] LABS: VENOUS BLOOD BASE EXCESS 0.6 mmol/L; VENOUS BLOOD PCO2 61.9 mmHg (35-63); VENOUS BLOOD PH 7.29 (7.30-7.42)
[2020-02-28] MEDS ORDERED: ONDANSETRON HCL INJ/PF 4 MG/2 ML SDV IV ONE (16:15)
[2020-02-28 16:23] LABS: ALBUMIN 4.6 g/dL (3.5-5.0); ALKALINE PHOSPHATASE 277 U/L (38-126); ANION GAP 17 (5-19); ASPARTATE AMINO TRANSFERASE 14 U/L (17-59); BILIRUBIN,DIRECT 0.3 mg/dL (0.0-0.4); BILIRUBIN,TOTAL 0.6 mg/dL (0.2-1.3); BLOOD UREA NITROGEN 62 mg/dL (7-20); CARBON DIOXIDE 28 mmol/L (22-30); CHLORIDE 92 mmol/L (98-107); POTASSIUM 5.8 mmol/L (3.6-5.0)
[2020-02-28 16:28] LABS: APPEARANCE,URINE CLEAR; BILIRUBIN,URINE NEGATIVE (NEGATIVE); COLOR,URINE STRAW; GLUCOSE, URINE >=1000 mg/dL (NEGATIVE); KETONES,URINE 25 mg/dL (NEGATIVE); URINE SPECIFIC GRAVITY 1.029
[2020-02-28 16:29] LABS: ADD MANUAL MICROSCOPIC YES; AMORPHOUS SEDIMENT,UR 1+; LEUKOCYTE ESTERASE,URINE NEGATIVE (NEGATIVE); NITRITE,URINE NEGATIVE (NEGATIVE); PROTEIN,URINE NEGATIVE (NEGATIVE); UROBILINOGEN,URINE NEGATIVE mg/dL (<2.0); WBC,URINE 0-1 /HPF
--- NOTE | 2020-02-28 16:29 | ER Document Report ---
ED General - General Chief Complaint: High Blood Sugar Stated Complaint: POSSIBLE HIGH BLOOD SUGAR Time Seen by Provider: 02/28/20 15:03 Primary Care Provider: MUMTAZ RIVAS [NO LOCAL MD] - Follow up as needed - HPI Notes: Chief complaint: High blood sugar History of present illness: 24-year-old male recently diagnosed with new onset diabetes mellitus type 1 and hospitalized here for diabetic ketoacidosis returns now with recurrent problems with elevated blood sugar. Patient was discharged in facility 7 days ago and at that time was supposed to be going home on sliding scale regular insulin regimen along with twice daily administration of Humulin 70/30. [facility] According to lodging house keeper who accompanies him today there was difficulty in obtaining his medication from his pharmacy and this was not started until yesterday. His bl ood sugars have been high at home he has been nauseated without vomiting. His oral intake has been diminished. He has been having severe polydipsia and polyuria. No fever or chills. No abdominal or chest pain. He denies any skin lesions. - Related Data Allergies/Adverse Reactions: No Known Allergies Allergy (Verified 02/07/20 12:04) Home Medications: insulin lispro and 70/30.... Past Medical History - General Information source: Patient, Friend, [facility] Records - Social History Smoking Status: Former Smoker Chew tobacco use (# tins/day): No Frequency of alcohol use: Rare Drug Abuse: None Family History: DM, Malignancy Patient has homicidal ideation: No Endocrine Medical History: Reports: Hx Diabetes Mellitus Type 1 Psychiatric Medical History: Denies: Hx Depression - Immunizations Immunizations up to date: Yes Hx Diphtheria, Pertussis, Tetanus Vaccination: Yes Review of Systems - Review of Systems Notes: Constitutional: Negative for fever. HENT: Negative for sore throat. Eyes: Negative for visual changes. Cardiovascular: Negative for chest pain. Respiratory: Negative for shortness of breath. Gastrointestinal: As per HPI. Genitourinary: Negative for dysuria. Musculoskeletal: Negative for back pain. Skin: Negative for rash. Neurological: Negative for headaches, focal weakness or numbness. 10 point ROS negative except as marked above and in HPI. Physical Exam - Vital signs Vitals: Pulse Resp BP Pulse Ox 117 H 16 128/98 H 94 02/28/20 15:10 02/28/20 15:10 02/28/20 15:10 02/28/20 15:10 - Notes Notes: GENERAL: Slender male of approximately stated age with mild Kussmaul respirations appearing dehydrated. Patient is sleepy but awake. SKIN: Decreased turgor no rashes. HEAD: Normocephalic atraumatic. EYES: Eyes sunken consistent with dehydration. PERRLA. EOMI. Conjunctivae and sclerae clear. EARS: CANALS AND TMS CLEAR. NOSE: CLEAR. MOUTH: Tacky oral mucosa. Good dentition. No stridor or edema. No drooling. NECK: Supple. No masses or thyromegaly. No adenopathy. Carotids 2+ without bruits. No JVD. BACK: Symmetrical without tenderness. CHEST: Mild Kussmaul respirations. Breath sounds clear and symmetrical. HEART: Regular rhythm. No murmur gallop or rub. ABDOMEN: Soft nontender without masses, organomegaly or rebound. Bowel sounds normally active. No bruits. GENITALIA: Deferred. EXTREMITIES: No edema. No calf tenderness. Cap refill less than 1.5 seconds. Dorsalis pedis and posterior tibial pulses 3+ and symmetrical. NEUROLOGICAL: GCS 15. Sleepy but oriented x3. Fluent speech. Cranial nerves II through XII intact. Sensorimotor and cerebellar normal. Normal tone. PSYCHIATRIC: Appropriate affect. Course - Re-evaluation Re-evalutation: 02/28/20 16:54 Patient is in DKA and is quite dehydrated. This appears to be due to lack of compliance with insulin prescribed at time of discharge. I have initiated IV insulin drip and IV hydration. He is admitted to [facility] by Dr. Valentin. - Vital Signs Vital signs: Temp Pulse Resp BP Pulse Ox 97.6 F 117 H 14 137/99 H 100 02/28/20 15:31 02/28/20 15:10 02/28/20 16:01 02/28/20 16:01 02/28/20 16:01 - Laboratory Results Result Diagrams: 02/28/20 15:48 02/28/20 15:48 Laboratory Results Interpreted: 02/28/20 02/28/20 02/28/20 15:48 15:48 15:48 VBG pH 7.29 L Sodium 136.5 L Potassium 5.8 H Chloride 92 L BUN 62 H Creatinine 2.06 H Est GFR ( Amer) 48 L Est GFR (MDRD) Non-Af 40 L Glucose 1152 H* Lactic Acid 2.4 H Calcium 12.2 H* AST 14 L Alkaline Phosphatase 277 H Total Protein 9.0 H Urine Glucose (UA) Urine Ketones Urine Blood 02/28/20 15:48 VBG pH Sodium Potassium Chloride BUN Creatinine Est GFR ( Amer) Est GFR (MDRD) Non-Af Glucose Lactic Acid Calcium AST Alkaline Phosphatase Total Protein Urine Glucose (UA) >=1000 H Urine Ketones 25 H Urine Blood SMALL H Critical Laboratory Results Reviewed: Yes Attending or Supervising Physician who Reviewed Labs: JOSE EDUARDO OLIVA - Radiology Results Critical Radiology Results Reviewed: No Critical Results - EKG Interpretation by Me Additional EKG results interpreted by me: 02/28/20 16:33 Twelve-lead EKG reviewed by me contemporaneously: 2150 hrs. Indication for study: DKA Rhythm: Sinus tachycardia Rate: 113 Intervals: Normal intervals QRS axis: +[address]/T wave changes: Peaking of T waves with J-point elevation V2 through V4 consistent with early repolarization Comparison with prior tracing: Compared with prior tracing of 02/18/2020 there is minimal interval change. Interpretation: Sinus tachycardia and early repolarization. Critical Care Note - Critical Care Note Total time excluding time spent on procedures (mins): 35 - DKA with initiation of insulin drip IV Discharge - Discharge Clinical Impression: DKA (diabetic ketoacidoses) Qualifiers: Diabetes mellitus type: type 1 Diabetes mellitus complication detail: without coma Qualified Code(s): E10.10 - Type 1 diabetes mellitus with ketoacidosis without coma Condition: Fair Disposition: ADMITTED INPATIENT Admitting Provider: Homero (Hospitalist) Unit Admitted: IMCU Referrals: LOCALMD,NO [NO LOCAL MD] - Follow up as needed
[2020-02-28 16:31] LABS: HEMATOCRIT 51.7 % (37.9-51.0); HEMOGLOBIN 15.5 g/dL (13.5-17.0); PLATELET COUNT 316 10^3/uL (150-450); RED BLOOD COUNT 5.97 10^6/uL (4.35-5.55); RED CELL DISTRIBUTION WIDTH 19.5 % (11.5-14.0); WHITE BLOOD COUNT 5.7 10^3/uL (4.0-10.5)
[2020-02-28 16:37] LABS: CALCIUM 12.2 mg/dL (8.4-10.2); GLUCOSE 1152 mg/dL (75-110)
[2020-02-28 16:38] LABS: URINE AMPHETAMINES SCREEN NEGATIVE; URINE BARBITURATES SCREEN NEGATIVE; URINE BENZODIAZEPINES SCREEN NEGATIVE; URINE COCAINE SCREEN NEGATIVE; URINE MARIJUANA (THC) SCREEN NEGATIVE; URINE METHADONE SCREEN NEGATIVE; URINE PHENCYCLIDINE SCREEN NEGATIVE
[2020-02-28] MEDS ORDERED: NORMAL SALINE 100 ML with INSULIN REGULAR, HUMAN 100 UNIT IV PRN ×2 (16:49)
--- NOTE | 2020-02-28 16:57 | RADIOLOGY REPORT (SQ) ---
EXAM DESCRIPTION: CHEST SINGLE VIEW IMAGES COMPLETED DATE/TIME: 02/28/2020 4:50 pm REASON FOR STUDY: DKA COMPARISON: None. EXAM PARAMETERS: NUMBER OF VIEWS: One view. TECHNIQUE: Single frontal radiographic view of the chest acquired. RADIATION DOSE: NA LIMITATIONS: None. FINDINGS: LUNGS AND PLEURA: No opacities, masses or pneumothorax. No pleural effusion. MEDIASTINUM AND HILAR STRUCTURES: No masses. Contour normal. HEART AND VASCULAR STRUCTURES: Heart normal in size. Normal vasculature. BONES: No acute findings. HARDWARE: None in the chest. OTHER: No other significant finding. IMPRESSION: NO ACUTE RADIOGRAPHIC FINDING IN THE CHEST. TECHNICAL DOCUMENTATION: JOB ID: [id number] 2010 [employer]- All Rights Reserved Reading location - IP/workstation name: [email or web address]
[2020-02-28 16:59] LABS: MEAN CORPUSCULAR VOLUME 87 fl (80-97)
[2020-02-28 17:02] LABS: ABSOLUTE LYMPHOCYTES# (MANUAL) 0.7 10^3/uL (0.5-4.7); ABSOLUTE MONOCYTES # (MANUAL) 0.5 10^3/uL (0.1-1.4); BAND NEUTROPHILS % (MANUAL) 1 % (3-5); BASOPHILS % (MANUAL) 0 % (0-2); EOSINOPHILS % (MANUAL) 0 % (0-6); LYMPHOCYTES % (MANUAL) 13 % (13-45); MONOCYTES % (MANUAL) 9 % (3-13); SEGMENTED NEUTROPHILS % (MAN) 77 % (42-78); TOTAL CELLS COUNTED 100
[2020-02-28 17:04] LABS: ANISOCYTOSIS 2+; PLATELET COMMENT ADEQUATE
[2020-02-28] MEDS ORDERED: INSULIN REG, HUMAN 100 UNIT/ML 3 ML VIAL (PYX) ONE (17:04)
[2020-02-28] MEDS ORDERED: IPRATROPIUM/ALBUTEROL 0.5-2.5 MG/3 ML AMPUL NEB PRN (17:43)
[2020-02-28] MEDS ORDERED: ACETAMINOPHEN 325 MG TABLET PO PRN (17:43)
[2020-02-28] MEDS ORDERED: ONDANSETRON HCL INJ/PF 4 MG/2 ML SDV IV PRN (17:43)
[2020-02-28] MEDS ORDERED: MAGNESIUM HYDROXIDE SUSP 30 ML UDCUP PO PRN (17:43)
[2020-02-28] MEDS ORDERED: OXYCODONE-ACETAMINOPHEN 5-325 MG TABLET PO PRN (17:43)
[2020-02-28] MEDS ORDERED: ZOLPIDEM TARTRATE 5 MG TABLET PO PRN (17:43)
--- NOTE | 2020-02-28 18:07 | PDOC H&P ---
History of Present Illness Admission Date/PCP: 02/28/20 17:06 Patient complains of: Elevated blood sugar, diminished oral intake and inability to obtain insulin as prescribed History of Present Illness: FELPIE FAJARDO is a 24 year old male This patient was just discharged from the hospital on February 20 with a newly diagnosed diabetes mellitus. He was sent home on Humulin 70/30 as well as lispro however unfortunately it appears he was unable to get this filled on time. It appears that the pharmacy was delayed in getting the insulin to them answer patient has basically been without insulin for the past 1 week. [facility] and after being evaluated today he was advised to come to the emergency room for evaluation. He did check his blood sugar at home and it apparently read high. Patient denies any nausea vomi ting at home. His intake has been poor. He was found to have a blood sugar of 1152, potassium of 5.8, creatinine of 2.06 and a BUN of 62 obviously reflecting a highly dehydrated condition due to his hypoglycemia. He is creatinine a week ago was 0.79 and his BUN was 12. His anion gap is actually relatively normal at 17 with a CO2 of 28 so patient is really hyperosmolar, and pH is 7.29 he does h ave some ketones in his urine. Patient was also tachycardic as expected as well as with elevated blood pressure. He actually does not have any leukocytosis although hemoglobin is elevated reflecting he is dehydration. He also has no abdominal pain or nausea or vomiting and urinalysis is benign for infection although positive for glucosuria ketonuria and small hematuria as to be expected Past Medical History Endocrine Medical History: Reports: Diabetes Mellitus Type 2 Psychiatric Medical History: Denies: Depression Past Surgical History Past Surgical History: Reports: None Social History Information Source: Patient Smoking Status: Former Smoker Electronic Cigarette use?: No Frequency of Alcohol Use: Social Hx Recreational Drug Use: No Drugs: Marijuana Hx Prescription Drug Abuse: No - Advance Directive Resuscitation Status: Full Code Family History Family History: DM, Malignancy Parental Family History Reviewed: Yes Children Family History Reviewed: NA Sibling(s) Family History Reviewed.: NA Medication/Allergy Home Medications: Hum Insulin NPH/Reg Insulin Hm [Insulin Inj 70-30 (100 Unit/1 ml) 3 ml Vial] 25 unit SUBCUT BID 30 Days #2 vial 02/21/20 Insulin Lispro [Humalog Insulin (Lispro) 100 unit/mL] 6 unit SUBCUT AC 30 Days #1 vial 02/21/20 Allergies/Adverse Reactions: No Known Allergies Allergy (Verified 02/07/20 12:04) Review of Systems All systems: reviewed and no additional remarkable complaints except as stated Gastrointestinal: ABSENT: abdominal pain, nausea, vomiting Genitourinary: ABSENT: dysuria, hematuria Physical Exam Vital Signs: Temp Pulse Resp BP Pulse Ox 97.6 F 117 H 14 137/99 H 100 02/28/20 15:31 02/28/20 15:10 02/28/20 16:01 02/28/20 16:01 02/28/20 16:01 Intake & Output 02/27/20 02/28/20 02/29/20 06:59 06:59 06:59 Intake Total 1000 Output Total 550 Balance 450 Weight 84.3 kg General appearance: PRESENT: no acute distress, thin Head exam: PRESENT: atraumatic, normocephalic Eye exam: PRESENT: conjunctiva pink Mouth exam: PRESENT: dry mucosa, tongue midline Neck exam: ABSENT: carotid bruit, JVD, lymphadenopathy, thyromegaly Respiratory exam: PRESENT: clear to auscultation arnold. ABSENT: rales, rhonchi, wheezes Cardiovascular exam: PRESENT: +S1, +S2, tachycardia. ABSENT: diastolic murmur, rubs, systolic murmur Pulses: PRESENT: normal dorsalis pedis pul Vascular exam: PRESENT: normal capillary refill GI/Abdominal exam: PRESENT: normal bowel sounds, soft. ABSENT: distended, guarding, mass, organolmegaly, rebound, tenderness Rectal exam: PRESENT: deferred Extremities exam: PRESENT: full ROM. ABSENT: calf tenderness, clubbing, pedal edema Neurological exam: PRESENT: alert, awake, oriented to person, oriented to place, oriented to time, oriented to situation, CN II-XII grossly intact. ABSENT: motor sensory deficit Psychiatric exam: PRESENT: appropriate affect, normal mood. ABSENT: homicidal ideation, suicidal ideation Skin exam: PRESENT: dry, intact, warm. ABSENT: cyanosis, rash Results Laboratory Results: 02/28/20 15:48 02/28/20 15:48 02/28/20 02/28/20 02/28/20 15:48 15:48 15:48 WBC 5.7 RBC 5.97 H Hgb 15.5 Hct 51.7 H MCV 87 D MCH 26.0 L MCHC 30.0 L RDW 19.5 H Plt Count 316 Seg Neutrophils % Not Reportable VBG pH 7.29 L VBG pCO2 61.9 VBG HCO3 29.0 VBG Base Excess 0.6 Sodium 136.5 L Potassium 5.8 H Chloride 92 L Carbon Dioxide 28 Anion Gap 17 BUN 62 H Creatinine 2.06 H Est GFR ( Amer) 48 L Glucose 1152 H* Lactic Acid Calcium 12.2 H* Total Bilirubin 0.6 AST 14 L Alkaline Phosphatase 277 H Total Protein 9.0 H Albumin 4.6 Urine Color Urine Appearance Urine pH Ur Specific Jerome Urine Protein Urine Glucose (UA) Urine Ketones Urine Blood Urine Nitrite Ur Leukocyte Esterase 02/28/20 02/28/20 15:48 15:48 WBC RBC Hgb Hct MCV MCH MCHC RDW Plt Count Seg Neutrophils % VBG pH VBG pCO2 VBG HCO3 VBG Base Excess Sodium Potassium Chloride Carbon Dioxide Anion Gap BUN Creatinine Est GFR ( Amer) Glucose Lactic Acid 2.4 H Calcium Total Bilirubin AST Alkaline Phosphatase Total Protein Albumin Urine Color STRAW Urine Appearance CLEAR Urine pH 5.0 Ur Specific Jerome 1.029 Urine Protein NEGATIVE Urine Glucose (UA) >=1000 H Urine Ketones 25 H Urine Blood SMALL H Urine Nitrite NEGATIVE Ur Leukocyte Esterase NEGATIVE 02/28/20 15:48 Troponin I < 0.012 Impressions: Chest X-Ray 02/28/20 16:36 IMPRESSION: NO ACUTE RADIOGRAPHIC FINDING IN THE CHEST. Assessment and Plan - Diagnosis (1) Diabetic ketoacidosis Qualifiers: Diabetes mellitus type: type 2 Diabetes mellitus complication detail: without coma Qualified Code(s): E11.10 - Type 2 diabetes mellitus with ketoacidosis without coma Is this a current diagnosis for this admission?: Yes (2) LAITH (acute kidney injury) Is this a current diagnosis for this admission?: Yes (3) Dehydration Is this a current diagnosis for this admission?: Yes (4) Hyperkalemia Is this a current diagnosis for this admission?: Yes - Plan Summary Summary: Patient was started on insulin drip in the emergency room. This needs to be continued. Along with aggressive hydration I think patient blood sugar shoulder hopefully correct within the next 24 to 36 hours. There appears to be no other associated or localizing symptoms. He has no nausea vomiting or abdominal pain. He does look very dry as to be expected. He is just very minimally acidotic. He is potassium obviously due to the lack of insulin is elevated and will expect this to normalize will decrease with correction of his hyperglycemia. Repeat BMP will be done 10 PM and will adjust his regimen if needed. Patient now states that he was able to procure the insulin so there should be no issues when we are discharging as this was really all brought upon by the fact that he was unable to use insulin for the last 1 week. - Time Time Spent with patient: 25-34 minutes Medications reviewed and adjusted accordingly: Yes Anticipated Discharge Disposition: Home, Self Care Anticipated Discharge Timeframe: within 72 hours - Inpatient Certification Based on my medical assessment, after consideration of the patient's comorbidities, presenting symptoms, or acuity I expect that the services needed warrant INPATIENT care.: Yes Medical Necessity: Need Close Monitoring Due to Risk of Patient Decompensation, Risk of Complication if Not Cared For in Hospital
--- NOTE | 2020-02-28 18:53 | EKG REPORT ---
SEVERITY:- ABNORMAL ECG - SINUS TACHYCARDIA CONSIDER LEFT VENTRICULAR HYPERTROPHY ST ELEV, PROBABLE NORMAL EARLY REPOL PATTERN : Confirmed by: Francoise Pérez 28-Feb-2020 18:52:47
[2020-02-28 21:30] LABS: ANION GAP 8 (5-19); BLOOD UREA NITROGEN 54 mg/dL (7-20); CALCIUM 11.9 mg/dL (8.4-10.2); CARBON DIOXIDE 30 mmol/L (22-30); CHLORIDE 109 mmol/L (98-107)
[2020-02-28] MEDS ORDERED: DEXTROSE 50%-WATER SYRINGE 12.5 GM/25 ML DOSE IV PRN (21:30)
[2020-02-28] MEDS ORDERED: DEXTROSE 50%-WATER SYRINGE 25 GM/50 ML DOSE IV PRN (21:30)
[2020-02-28] MEDS ORDERED: DEXTROSE 40% GEL 15 GM TUBE PO PRN (21:30)
[2020-02-28] MEDS ORDERED: DEXTROSE 40% GEL 15 GM TUBE X 2 PO PRN (21:30)
[2020-02-28] MEDS ORDERED: GLUCAGON,HUMAN RECOMB 1 MG INJ IM PRN (21:30)
[2020-02-28 21:42] LABS: POTASSIUM 4.1 mmol/L (3.6-5.0)
[2020-02-28 21:43] LABS: GLUCOSE 542 mg/dL (75-110)
[2020-02-28] MEDS: INSULIN, REGULAR 100 UNIT/100 ML NORMAL SALINE IV PRN ×2 (22:11)
[2020-02-28] MEDS ORDERED: POTASSI CL 20 MEQ/1/2NS 1L 20 MEQ/1,000 ML RTUINJ IV PRN (22:21)
[2020-02-29 02:44] LABS: ANION GAP 7 (5-19); BLOOD UREA NITROGEN 49 mg/dL (7-20); CARBON DIOXIDE 36 mmol/L (22-30); CHLORIDE 113 mmol/L (98-107); GLUCOSE 140 mg/dL (75-110); PHOSPHORUS 2.2 mg/dL (2.5-4.5); POTASSIUM 3.9 mmol/L (3.6-5.0)
[2020-02-29 02:51] LABS: HEMATOCRIT 49.2 % (37.9-51.0); HEMOGLOBIN 16.2 g/dL (13.5-17.0); MEAN CORPUSCULAR HEMOGLOBIN 26.2 pg (27.0-33.4); MEAN CORPUSCULAR HGB CONC 32.9 g/dL (32.0-36.0); PLATELET COUNT 267 10^3/uL (150-450); RED BLOOD COUNT 6.17 10^6/uL (4.35-5.55); RED CELL DISTRIBUTION WIDTH 18.1 % (11.5-14.0); WHITE BLOOD COUNT 5.3 10^3/uL (4.0-10.5)
[2020-02-29 02:52] LABS: CALCIUM 12.4 mg/dL (8.4-10.2)
[2020-02-29 03:21] LABS: ABSOLUTE LYMPHOCYTES# (MANUAL) 0.5 10^3/uL (0.5-4.7); ABSOLUTE MONOCYTES # (MANUAL) 0.9 10^3/uL (0.1-1.4); BAND NEUTROPHILS % (MANUAL) 1 % (3-5); BASOPHILS % (MANUAL) 1 % (0-2); EOSINOPHILS % (MANUAL) 3 % (0-6); LYMPHOCYTES % (MANUAL) 10 % (13-45); MONOCYTES % (MANUAL) 17 % (3-13); SEGMENTED NEUTROPHILS % (MAN) 68 % (42-78); TOTAL CELLS COUNTED 100
[2020-02-29 03:26] LABS: ANISOCYTOSIS 1+; HYPOCHROMASIA SLIGHT; TARGET CELLS SLIGHT; TEAR DROP CELLS SLIGHT; TOXIC GRANULATION SLIGHT; TOXIC VACUOLATION PRESENT
[2020-02-29 03:27] LABS: PLATELET COMMENT ADEQUATE
[2020-02-29 03:46] LABS: MEAN CORPUSCULAR VOLUME 80 fl (80-97)
[2020-02-29] MEDS ORDERED: DEXTROSE 5%-WATER 1000 ML 1,000 ML with POTASSIUM CHLORIDE 20 MEQ IV PRN ×2 (03:53)
[2020-02-29] MEDS: INSULIN, REGULAR 100 UNIT/100 ML NORMAL SALINE IV PRN ×6 (04:03→22:51)
[2020-02-29 04:10] LABS: ANION GAP 8 (5-19); BLOOD UREA NITROGEN 50 mg/dL (7-20); CALCIUM 11.9 mg/dL (8.4-10.2); CARBON DIOXIDE 34 mmol/L (22-30); CHLORIDE 113 mmol/L (98-107); GLUCOSE 127 mg/dL (75-110); POTASSIUM 4.2 mmol/L (3.6-5.0)
[2020-02-29] MEDS: PANTOPRAZOLE SODIUM 40 MG VIAL IV SCH (09:34)
[2020-02-29] MEDS: ENOXAPARIN SODIUM INJ 40 MG/0.4 ML DISP.SYRIN SUBCUT SCH (09:34)
[2020-02-29 09:54] LABS: ANION GAP 8 (5-19); BLOOD UREA NITROGEN 42 mg/dL (7-20); CALCIUM 11.1 mg/dL (8.4-10.2); CARBON DIOXIDE 32 mmol/L (22-30); CHLORIDE 105 mmol/L (98-107); GLUCOSE 391 mg/dL (75-110); PHOSPHORUS 3.3 mg/dL (2.5-4.5); POTASSIUM 4.1 mmol/L (3.6-5.0)
[2020-02-29] MEDS ORDERED: 1/2 NORMAL SALINE 1,000 ML IV PRN (11:38)
[2020-02-29] MEDS ORDERED: POTASSI CL 20 MEQ/1/2NS 1L 1000 ML IV PRN (12:34)
[2020-02-29 16:03] LABS: ANION GAP 10 (5-19); BLOOD UREA NITROGEN 40 mg/dL (7-20); CALCIUM 11.1 mg/dL (8.4-10.2); CARBON DIOXIDE 29 mmol/L (22-30); CHLORIDE 106 mmol/L (98-107); POTASSIUM 3.8 mmol/L (3.6-5.0)
[2020-02-29 16:14] LABS: GLUCOSE 403 mg/dL (75-110)
--- NOTE | 2020-02-29 16:47 | PDOC PROGRESS REPORT ---
Subjective Date:: 02/29/20 Subjective:: Patient does feel better with minimal nausea vomiting. He is still somewhat vikas wsy although easily arousable Reason For Visit: DIABETIC KETOACIDOSIS Physical Exam Vital Signs: Temp Pulse Resp BP Pulse Ox 97.6 F 78 15 149/86 H 100 02/29/20 10:00 02/29/20 14:41 02/29/20 14:41 02/29/20 07:55 02/29/20 14:41 Intake & Output 02/28/20 02/29/20 03/01/20 06:59 06:59 06:59 Intake Total 2563 426 Output Total 2450 500 Balance 113 -74 Weight 86 kg General appearance: PRESENT: no acute distress, well-developed, well-nourished, other - Tall lanky akash Head exam: PRESENT: atraumatic, normocephalic Eye exam: PRESENT: conjunctiva pink, EOMI, PERRLA. ABSENT: scleral icterus Ear exam: PRESENT: normal external ear exam Mouth exam: PRESENT: dry mucosa, tongue midline Neck exam: ABSENT: carotid bruit, JVD, lymphadenopathy, thyromegaly Respiratory exam: PRESENT: clear to auscultation arnold, unlabored. ABSENT: rales, rhonchi, wheezes Cardiovascular exam: PRESENT: RRR, +S1, +S2. ABSENT: diastolic murmur, rubs, systolic murmur Pulses: PRESENT: normal dorsalis pedis pul Vascular exam: PRESENT: normal capillary refill GI/Abdominal exam: PRESENT: normal bowel sounds, soft. ABSENT: distended, guarding, mass, organolmegaly, rebound, tenderness Rectal exam: PRESENT: deferred Extremities exam: PRESENT: full ROM. ABSENT: calf tenderness, clubbing, pedal edema Neurological exam: PRESENT: alert, awake, oriented to person, oriented to place, oriented to time, oriented to situation. ABSENT: motor sensory deficit Psychiatric exam: PRESENT: appropriate affect, unusual affect. ABSENT: homicidal ideation, suicidal ideation Skin exam: PRESENT: dry, intact, warm. ABSENT: cyanosis, rash Results Laboratory Results: 02/29/20 02:23 02/29/20 14:57 02/28/20 02/28/20 02/29/20 15:48 20:54 02:23 WBC 5.7 5.3 RBC 5.97 H 6.17 H Hgb 15.5 16.2 Hct 51.7 H 49.2 MCV 87 D 80 D MCH 26.0 L 26.2 L MCHC 30.0 L 32.9 RDW 19.5 H 18.1 H Plt Count 316 267 Seg Neutrophils % Not Reportable Not Reportable Sodium 147.0 H Potassium 4.1 D Chloride 109 H Carbon Dioxide 30 Anion Gap 8 BUN 54 H Creatinine 1.47 H Est GFR ( Amer) > 60 Est GFR (Non-Af Amer) Glucose 542 H* Calcium 11.9 H Phosphorus Magnesium PTH Intact 02/29/20 02/29/20 02/29/20 02:23 03:43 09:15 WBC RBC Hgb Hct MCV MCH MCHC RDW Plt Count Seg Neutrophils % Sodium 156.2 H 154.7 H Potassium 3.9 4.2 Chloride 113 H 113 H Carbon Dioxide 36 H 34 H Anion Gap 7 8 BUN 49 H 50 H Creatinine 1.64 H 1.52 H Est GFR ( Amer) > 60 > 60 Est GFR (Non-Af Amer) Glucose 140 H 127 H Calcium 12.4 H* 11.9 H Phosphorus 2.2 L Magnesium 3.2 H PTH Intact 32.6 02/29/20 02/29/20 02/29/20 09:15 11:40 14:57 WBC RBC Hgb Hct MCV MCH MCHC RDW Plt Count Seg Neutrophils % Sodium 145.3 H Cancelled 144.6 Potassium 4.1 Cancelled 3.8 Chloride 105 Cancelled 106 Carbon Dioxide 32 H Cancelled 29 Anion Gap 8 Cancelled 10 BUN 42 H Cancelled 40 H Creatinine 1.35 H Cancelled 1.36 H Est GFR ( Amer) > 60 Cancelled > 60 Est GFR (Non-Af Amer) Cancelled Glucose 391 H Cancelled 403 H* Calcium 11.1 H Cancelled 11.1 H Phosphorus 3.3 Magnesium 2.4 H PTH Intact 02/28/20 02/28/20 15:48 15:48 Troponin I < 0.012 Cancelled Impressions: Chest X-Ray 02/28/20 16:36 IMPRESSION: NO ACUTE RADIOGRAPHIC FINDING IN THE CHEST. Assessment and Plan - Diagnosis (1) Diabetic ketoacidosis Qualifiers: Diabetes mellitus type: type 2 Diabetes mellitus complication detail: without coma Qualified Code(s): E11.10 - Type 2 diabetes mellitus with ketoacidosis without coma Is this a current diagnosis for this admission?: Yes (2) LAITH (acute kidney injury) Is this a current diagnosis for this admission?: Yes (3) Dehydration Is this a current diagnosis for this admission?: Yes (4) Hyperkalemia Is this a current diagnosis for this admission?: Yes - Plan Summary Summary: Patient was started on insulin drip in the emergency room. This needs to be continued. Along with aggressive hydration I think patient blood sugar shoulder hopefully correct within the next 24 to 36 hours. There appears to be no other associated or localizing symptoms. He has no nausea vomiting or abdominal pain. He does look very dry as to be expected. He is just very minimally acidotic. He is potassium obviously due to the lack of insulin is elevated and will expect this to normalize will decrease with correction of his hyperglycemia. Repeat BMP will be done 10 PM and will adjust his regimen if needed. Patient now states that he was able to procure the insulin so there should be no issues when we are discharging as this was really all brought upon by the fact that he was unable to use insulin for the last 1 week. 02/28 Patient blood sugar is improved although still high but coming down from 1152 I think it is appropriate. We will try to get him down for the tomorrow. He is dehydration is also improving with his kidney function and prerenal azotemia improving. His hyponatremia is also improving. He is currently on hypotonic fluid and he has serial BMP ordered so this should be checked with adjustments of his fluids as needed. He still remains hypercalcemic although this is also improving. I believe all his electrolyte abnormalities stem from his cross severe hyperglycemia and hyperosmolar. He is minimally acidotic he was placed back on the insulin drip as his blood sugar was initially low this morning at about 65 and then has been more than 400. We will need to keep adjusting his insulin requirement depending on his readings. He will need to be emphasized to the patient and his partner the need to be compliant with medications as prescribed - Time Time Spent with patient: 15-24 minutes Medications reviewed and adjusted accordingly: Yes Anticipated Discharge Disposition: Home, Self Care Anticipated Discharge Timeframe: within 72 hours
[2020-02-29 23:27] LABS: ANION GAP 6 (5-19); BLOOD UREA NITROGEN 31 mg/dL (7-20); CALCIUM 10.5 mg/dL (8.4-10.2); CARBON DIOXIDE 30 mmol/L (22-30); CHLORIDE 107 mmol/L (98-107); GLUCOSE 124 mg/dL (75-110); POTASSIUM 3.6 mmol/L (3.6-5.0)
[2020-03-01] MEDS ORDERED: POTASSIUM CHLORIDE 20 MEQ PACKET PO ONE (01:36)
[2020-03-01] MEDS ORDERED: DEXTROSE 5%-NORMAL SALINE 1,000 ML IV PRN (02:06)
[2020-03-01] MEDS ORDERED: POTASSI CL 20 MEQ/D5-1/2NS 1L 1,000 ML IV PRN (02:40)
[2020-03-01] MEDS: POTASSI CL 20 MEQ/1/2NS 1L 20 MEQ/1,000 ML RTUINJ IV PRN ×3 (03:55→22:57)
[2020-03-01] MEDS ORDERED: INSULIN LISPRO 100 UNIT/ML 3 ML VIAL SUBCUT ONE ×4 (06:00→23:00)
[2020-03-01 06:04] LABS: ABSOLUTE EOSINOPHILS # (AUTO) 0.1 10^3/uL (0.0-0.6); ABSOLUTE MONOCYTES (AUTO) 0.4 10^3/uL (0.1-1.4); ABSOLUTE NEUT (AUTO) 1.2 10^3/uL (1.7-8.2); BASOPHILS % (AUTO) 0.5 % (0-2); EOSINOPHILS % (AUTO) 5.1 % (0-6); HEMATOCRIT 35.8 % (37.9-51.0); MEAN CORPUSCULAR HEMOGLOBIN 26.3 pg (27.0-33.4); MEAN CORPUSCULAR HGB CONC 32.5 g/dL (32.0-36.0); MEAN CORPUSCULAR VOLUME 81 fl (80-97); MONOCYTES % (AUTO) 13.3 % (3-13); PLATELET COUNT 176 10^3/uL (150-450); RED BLOOD COUNT 4.44 10^6/uL (4.35-5.55); RED CELL DISTRIBUTION WIDTH 18.2 % (11.5-14.0); SEGMENTED NEUTROPHILS % (AUTO) 44.1 % (42-78); TOTAL CELLS COUNTED % (AUTO) 100 %
[2020-03-01 06:07] LABS: HEMOGLOBIN 11.7 g/dL (13.5-17.0); WHITE BLOOD COUNT 2.7 10^3/uL (4.0-10.5)
[2020-03-01 06:23] LABS: ANION GAP 6 (5-19); BLOOD UREA NITROGEN 27 mg/dL (7-20); CALCIUM 9.7 mg/dL (8.4-10.2); CARBON DIOXIDE 27 mmol/L (22-30); CHLORIDE 104 mmol/L (98-107); GLUCOSE 357 mg/dL (75-110); POTASSIUM 3.7 mmol/L (3.6-5.0)
[2020-03-01] MEDS: HUM INSULIN NPH/REG INSULIN HM 100 UNIT/1 ML 3 ML SUBCUT SCH ×2 (11:39→18:41)
[2020-03-01] MEDS: ENOXAPARIN SODIUM INJ 40 MG/0.4 ML DISP.SYRIN SUBCUT SCH (11:41)
[2020-03-01] MEDS: PANTOPRAZOLE SODIUM 40 MG VIAL IV SCH (11:41)
[2020-03-01 11:43] LABS: ANION GAP 8 (5-19); BLOOD UREA NITROGEN 26 mg/dL (7-20); CALCIUM 9.6 mg/dL (8.4-10.2); CARBON DIOXIDE 25 mmol/L (22-30); CHLORIDE 101 mmol/L (98-107); POTASSIUM 4.1 mmol/L (3.6-5.0)
[2020-03-01 11:53] LABS: GLUCOSE 504 mg/dL (75-110)
[2020-03-01] MEDS: INSULIN REG, HUMAN 100 UNIT/ML 3 ML VIAL (PYX) SUBCUT SCH ×3 (13:18→22:54)
[2020-03-01] MEDS: INSULIN LISPRO 100 UNIT/ML 3 ML VIAL SUBCUT SCH ×2 (13:19→16:39)
--- NOTE | 2020-03-01 16:34 | PDOC PROGRESS REPORT ---
Subjective Date:: 03/01/20 Subjective:: Patient feels better today. He is blood sugar has been better controlled howeve r asymptomatic creeping up again this evening. Have shifted him to subacute insulin. Reason For Visit: DIABETIC KETOACIDOSIS Physical Exam Vital Signs: Temp Pulse Resp BP Pulse Ox 97.6 F 74 14 149/86 H 99 03/01/20 10:00 03/01/20 12:32 03/01/20 12:32 02/29/20 07:55 03/01/20 12:32 Intake & Output 02/29/20 03/01/20 03/02/20 06:59 06:59 06:59 Intake Total 2563 1911 1965 Output Total 2450 1050 650 Balance 200 071 5871 Weight 86 kg 94.7 kg General appearance: PRESENT: no acute distress, well-developed, well-nourished Head exam: PRESENT: atraumatic, normocephalic Eye exam: PRESENT: conjunctiva pink, PERRLA. ABSENT: scleral icterus Ear exam: PRESENT: normal external ear exam Mouth exam: PRESENT: moist, tongue midline Neck exam: ABSENT: carotid bruit, JVD, lymphadenopathy, thyromegaly Respiratory exam: PRESENT: clear to auscultation arnold. ABSENT: rales, rhonchi, wheezes Cardiovascular exam: PRESENT: RRR, +S1, +S2. ABSENT: diastolic murmur, rubs, systolic murmur Pulses: PRESENT: normal dorsalis pedis pul Vascular exam: PRESENT: normal capillary refill GI/Abdominal exam: PRESENT: normal bowel sounds, soft. ABSENT: distended, guarding, mass, organolmegaly, rebound, tenderness Rectal exam: PRESENT: deferred Extremities exam: PRESENT: full ROM. ABSENT: calf tenderness, clubbing, pedal edema Neurological exam: PRESENT: alert, awake, oriented to person, oriented to place, oriented to time, oriented to situation, CN II-XII grossly intact. ABSENT: motor sensory deficit Psychiatric exam: PRESENT: appropriate affect, normal mood. ABSENT: homicidal ideation, suicidal ideation Skin exam: PRESENT: dry, intact, warm. ABSENT: cyanosis, rash Results Laboratory Results: 03/01/20 05:33 03/01/20 10:52 02/29/20 03/01/20 03/01/20 23:02 05:33 05:33 WBC 2.7 L D RBC 4.44 Hgb 11.7 L D Hct 35.8 L MCV 81 MCH 26.3 L MCHC 32.5 RDW 18.2 H Plt Count 176 Seg Neutrophils % 44.1 Sodium 142.6 137.4 Potassium 3.6 3.7 Chloride 107 104 Carbon Dioxide 30 27 Anion Gap 6 6 BUN 31 H 27 H Creatinine 1.35 H 1.20 Est GFR ( Amer) > 60 > 60 Glucose 124 H 357 H Calcium 10.5 H 9.7 03/01/20 10:52 WBC RBC Hgb Hct MCV MCH MCHC RDW Plt Count Seg Neutrophils % Sodium 134.2 L Potassium 4.1 Chloride 101 Carbon Dioxide 25 Anion Gap 8 BUN 26 H Creatinine 1.20 Est GFR ( Amer) > 60 Glucose 504 H* Calcium 9.6 02/28/20 02/28/20 15:48 15:48 Troponin I < 0.012 Cancelled Impressions: Chest X-Ray 02/28/20 16:36 IMPRESSION: NO ACUTE RADIOGRAPHIC FINDING IN THE CHEST. Assessment and Plan - Diagnosis (1) Diabetic ketoacidosis Qualifiers: Diabetes mellitus type: type 2 Diabetes mellitus complication detail: without coma Qualified Code(s): E11.10 - Type 2 diabetes mellitus with ketoacidosis without coma Is this a current diagnosis for this admission?: Yes (2) LAITH (acute kidney injury) Is this a current diagnosis for this admission?: Yes (3) Dehydration Is this a current diagnosis for this admission?: Yes (4) Hyperkalemia Is this a current diagnosis for this admission?: Yes - Plan Summary Summary: Patient was started on insulin drip in the emergency room. This needs to be continued. Along with aggressive hydration I think patient blood sugar shoulder hopefully correct within the next 24 to 36 hours. There appears to be no other associated or localizing symptoms. He has no nausea vomiting or abdominal pain. He does look very dry as to be expected. He is just very minimally acidotic. He is potassium obviously due to the lack of insulin is elevated and will expect this to normalize will decrease with correction of his hyperglycemia. Repeat BMP will be done 10 PM and will adjust his regimen if needed. Patient now states that he was able to procure the insulin so there should be no issues when we are discharging as this was really all brought upon by the fact that he was unable to use insulin for the last 1 week. 02/28 Patient blood sugar is improved although still high but coming down from 1152 I think it is appropriate. We will try to get him down for the tomorrow. He is dehydration is also improving with his kidney function and prerenal azotemia improving. His hyponatremia is also improving. He is currently on hypotonic fluid and he has serial BMP ordered so this should be checked with adjustments of his fluids as needed. He still remains hypercalcemic although this is also improving. I believe all his electrolyte abnormalities stem from his cross severe hyperglycemia and hyperosmolar. He is minimally acidotic he was placed back on the insulin drip as his blood sugar was initially low this morning at about 65 and then has been more than 400. We will need to keep adjusting his insulin requirement depending on his readings. He will need to be emphasized to the patient and his partner the need to be compliant with medications as prescribed 03/01 Patient has been advised on the need to be compliant with his medications. Have tried to repeat them again to remove any possible ramifications. Continue to monitor his blood glucose closely as he does seem to be somewhat labile. Do not hesitate to put him on a drip if needed to control his blood sugar - Time Time Spent with patient: 15-24 minutes Medications reviewed and adjusted accordingly: Yes Anticipated Discharge Disposition: Home, Self Care Anticipated Discharge Timeframe: within 48 hours
[2020-03-01] MEDS ORDERED: INSULIN GLARGINE,HUM.REC.ANLOG 1,000 UNIT/10 ML VIAL SUBCUT SCH (18:00)
[2020-03-01] MEDS ORDERED: INSULIN REG, HUMAN 100 UNIT/ML 3 ML VIAL (PYX) SUBCUT ONE (18:45)
[2020-03-01 19:51] LABS: ANION GAP 6 (5-19); BLOOD UREA NITROGEN 27 mg/dL (7-20); CALCIUM 10.2 mg/dL (8.4-10.2); CARBON DIOXIDE 27 mmol/L (22-30); CHLORIDE 99 mmol/L (98-107); POTASSIUM 4.2 mmol/L (3.6-5.0)
[2020-03-01 20:18] LABS: GLUCOSE 617 mg/dL (75-110)
[2020-03-01] MEDS: INSULIN GLARGINE,HUM.REC.ANLOG 1,000 UNIT/10 ML VIAL SUBCUT SCH (22:57)
[2020-03-02 07:11] LABS: HEMATOCRIT 33.6 % (37.9-51.0); HEMOGLOBIN 11.1 g/dL (13.5-17.0); MEAN CORPUSCULAR HEMOGLOBIN 26.4 pg (27.0-33.4); MEAN CORPUSCULAR VOLUME 80 fl (80-97); PLATELET COUNT 149 10^3/uL (150-450); RED BLOOD COUNT 4.21 10^6/uL (4.35-5.55); RED CELL DISTRIBUTION WIDTH 18.1 % (11.5-14.0)
[2020-03-02 07:20] LABS: ANION GAP 5 (5-19); BLOOD UREA NITROGEN 20 mg/dL (7-20); CALCIUM 9.7 mg/dL (8.4-10.2); CARBON DIOXIDE 26 mmol/L (22-30); CHLORIDE 108 mmol/L (98-107); GLUCOSE 122 mg/dL (75-110); POTASSIUM 3.5 mmol/L (3.6-5.0)
[2020-03-02 07:31] LABS: ABSOLUTE LYMPHOCYTES# (MANUAL) 0.6 10^3/uL (0.5-4.7); ABSOLUTE MONOCYTES # (MANUAL) 0.2 10^3/uL (0.1-1.4); ANISOCYTOSIS 2+; BAND NEUTROPHILS % (MANUAL) 4 % (3-5); BASOPHILS % (MANUAL) 0 % (0-2); EOSINOPHILS % (MANUAL) 4 % (0-6); LYMPHOCYTES % (MANUAL) 32 % (13-45); MONOCYTES % (MANUAL) 10 % (3-13); PLATELET COMMENT ADEQUATE; POLYCHROMASIA 1+; SEGMENTED NEUTROPHILS % (MAN) 50 % (42-78); TOTAL CELLS COUNTED 50
[2020-03-02] MEDS: INSULIN REG, HUMAN 100 UNIT/ML 3 ML VIAL (PYX) SUBCUT SCH ×4 (09:15→21:49)
[2020-03-02] MEDS: POTASSI CL 20 MEQ/1/2NS 1L 20 MEQ/1,000 ML RTUINJ IV PRN ×2 (09:22→20:14)
[2020-03-02] MEDS: INSULIN LISPRO 100 UNIT/ML 3 ML VIAL SUBCUT SCH ×3 (09:22→16:51)
[2020-03-02] MEDS: ENOXAPARIN SODIUM INJ 40 MG/0.4 ML DISP.SYRIN SUBCUT SCH (11:00)
[2020-03-02] MEDS: HUM INSULIN NPH/REG INSULIN HM 100 UNIT/1 ML 3 ML SUBCUT SCH (11:26)
[2020-03-02] MEDS: PANTOPRAZOLE SODIUM 40 MG VIAL IV SCH (11:27)
[2020-03-02] MEDS: INSULIN GLARGINE,HUM.REC.ANLOG 1,000 UNIT/10 ML VIAL SUBCUT SCH ×2 (12:10→21:49)
--- NOTE | 2020-03-02 12:39 | PDOC PROGRESS REPORT ---
Subjective Date:: 03/02/20 Subjective:: Patient feels better today. Reason For Visit: DIABETIC KETOACIDOSIS Physical Exam Vital Signs: Temp Pulse Resp BP Pulse Ox 97.7 F 92 18 154/85 H 100 03/02/20 12:00 03/02/20 12:00 03/02/20 12:00 03/02/20 12:00 03/02/20 12:00 Intake & Output 03/01/20 03/02/20 03/03/20 06:59 06:59 06:59 Intake Total 1911 4655 Output Total 1050 2950 Balance 861 1705 Weight 94.7 kg 97.7 kg General appearance: PRESENT: no acute distress, well-developed, well-nourished, other - Tall lanky young akash Head exam: PRESENT: atraumatic, normocephalic Eye exam: PRESENT: conjunctiva pink, EOMI, PERRLA. ABSENT: scleral icterus Ear exam: PRESENT: normal external ear exam Mouth exam: PRESENT: moist, tongue midline Neck exam: ABSENT: carotid bruit, JVD, lymphadenopathy, thyromegaly Respiratory exam: PRESENT: clear to auscultation arnold. ABSENT: rales, rhonchi, wheezes Cardiovascular exam: PRESENT: RRR, +S1, +S2. ABSENT: diastolic murmur, rubs, systolic murmur Vascular exam: PRESENT: normal capillary refill GI/Abdominal exam: PRESENT: normal bowel sounds, soft. ABSENT: distended, guarding, mass, organolmegaly, rebound, tenderness Rectal exam: PRESENT: deferred Extremities exam: PRESENT: full ROM. ABSENT: calf tenderness, clubbing, pedal edema Neurological exam: PRESENT: alert, awake, oriented to person, oriented to place, oriented to time, oriented to situation, CN II-XII grossly intact. ABSENT: motor sensory deficit Psychiatric exam: PRESENT: appropriate affect, normal mood. ABSENT: homicidal ideation, suicidal ideation Skin exam: PRESENT: dry, intact, warm. ABSENT: cyanosis, rash Results Laboratory Results: 03/02/20 05:30 03/02/20 05:30 03/01/20 03/02/20 03/02/20 19:20 05:30 05:30 WBC 2.0 L RBC 4.21 L Hgb 11.1 L Hct 33.6 L MCV 80 MCH 26.4 L MCHC 33.0 RDW 18.1 H Plt Count 149 L Seg Neutrophils % Not Reportable Sodium 132.0 L 138.5 Potassium 4.2 3.5 L Chloride 99 108 H Carbon Dioxide 27 26 Anion Gap 6 5 BUN 27 H 20 Creatinine 1.21 0.86 Est GFR ( Amer) > 60 > 60 Glucose 617 H* 122 H Calcium 10.2 9.7 02/28/20 02/28/20 15:48 15:48 Troponin I < 0.012 Cancelled Impressions: Chest X-Ray 02/28/20 16:36 IMPRESSION: NO ACUTE RADIOGRAPHIC FINDING IN THE CHEST. Assessment and Plan - Diagnosis (1) Diabetic ketoacidosis Qualifiers: Diabetes mellitus type: type 2 Diabetes mellitus complication detail: without coma Qualified Code(s): E11.10 - Type 2 diabetes mellitus with ketoacidosis without coma Is this a current diagnosis for this admission?: Yes Plan: Resolved (2) LAITH (acute kidney injury) Is this a current diagnosis for this admission?: Yes Plan: Resolved (3) Dehydration Is this a current diagnosis for this admission?: Yes Plan: Resolving (4) Hyperkalemia Is this a current diagnosis for this admission?: Yes Plan: Secondary to insulin deficiency, resolved - Plan Summary Summary: Patient was started on insulin drip in the emergency room. This needs to be continued. Along with aggressive hydration I think patient blood sugar shoulder hopefully correct within the next 24 to 36 hours. There appears to be no other associated or localizing symptoms. He has no nausea vomiting or abdominal pain. He does look very dry as to be expected. He is just very minimally acidotic. He is potassium obviously due to the lack of insulin is elevated and will expect this to normalize will decrease with correction of his hyperglycemia. Repeat BMP will be done 10 PM and will adjust his regimen if needed. Patient now states that he was able to procure the insulin so there should be no issues when we are discharging as this was really all brought upon by the fact that he was unable to use insulin for the last 1 week. 02/28 Patient blood sugar is improved although still high but coming down from 1152 I think it is appropriate. We will try to get him down for the tomorrow. He is dehydration is also improving with his kidney function and prerenal azotemia improving. His hyponatremia is also improving. He is currently on hypotonic fluid and he has serial BMP ordered so this should be checked with adjustments of his fluids as needed. He still remains hypercalcemic although this is also improving. I believe all his electrolyte abnormalities stem from his cross severe hyperglycemia and hyperosmolar. He is minimally acidotic he was placed back on the insulin drip as his blood sugar was initially low this morning at about 65 and then has been more than 400. We will need to keep adjusting his insulin requirement depending on his readings. He will need to be emphasized to the patient and his partner the need to be compliant with medications as prescribed 03/01 Patient has been advised on the need to be compliant with his medications. Have tried to repeat them again to remove any possible ramifications. Continue to monitor his blood glucose closely as he does seem to be somewhat labile. Do not hesitate to put him on a drip if needed to control his blood sugar atient's blood sugar is still spiking up but then it was noted that patient was given Gatorade on a couple of occasions from the cafeteria. Were instructed that this needs to be removed from his allowed diet. I increased his basal Lantus as well as his prandial insulin yesterday but will cut back again today as he seems to be better controlled today. Patient will need continue education about his illness. He is noted to be leukopenic. Looking back at his previous WBC just from a few weeks ago it was around 5000. He did come in pretty dehydrated and bone dry which of course will explain his elevated hemoglobin has been receiving plenty of fluids since admission. He is leukopenia could be from his acute infection. Is also noted to have thrombocytopenia, mild but this was also normal just about 2 to 3 weeks ago so I suspect that this is all from his severely acute [id number] illnesses. If this does not recover then further testing should be obtained as indicated. Absolute neutrophil count is 1100 I have decreased his 7030 to 50 units twice daily, and continued his Lantus currently at 10 units twice daily as well as his short acting insulin. I will suggest that we try and get him back on his recently discharge dose of 7030 and the Lantus so as to minimize confusing this gentleman further. He already also has these medications filled and I think he will be another layer of confusion if we add more medications to his regimen - Time Time Spent with patient: 15-24 minutes Anticipated Discharge Disposition: Home, Self Care Anticipated Discharge Timeframe: within 72 hours
--- NOTE | 2020-03-02 17:23 | Progress Note ---
Provider Note Provider Note: By happenstance we discovered the patient is actually HIV positive and is on Biktarvy as outpatient. This obviously explains his leukopenia as well as his thrombocytopenia. History has been missing from the chart and so his history will be updated to include HIV positivity and I will start him on his Biktarvy
[2020-03-02] MEDS ORDERED: [UNRECOGNIZED DRUG - OTHER] PO SCH (17:30)
[2020-03-02] MEDS ORDERED: INSULIN LISPRO 100 UNIT/ML 3 ML VIAL SUBCUT ONE (17:30)
[2020-03-02] MEDS ORDERED: HUM INSULIN NPH/REG INSULIN HM 100 UNIT/1 ML 3 ML SUBCUT SCH (18:00)
[2020-03-03] MEDS: POTASSI CL 20 MEQ/1/2NS 1L 20 MEQ/1,000 ML RTUINJ IV PRN (04:11)
[2020-03-03] MEDS: INSULIN LISPRO 100 UNIT/ML 3 ML VIAL SUBCUT SCH ×3 (09:11→16:08)
[2020-03-03] MEDS: INSULIN REG, HUMAN 100 UNIT/ML 3 ML VIAL (PYX) SUBCUT SCH ×4 (09:12→21:30)
[2020-03-03] MEDS: ENOXAPARIN SODIUM INJ 40 MG/0.4 ML DISP.SYRIN SUBCUT SCH (10:55)
[2020-03-03] MEDS ORDERED: INSULIN LISPRO 100 UNIT/ML 3 ML VIAL SUBCUT SCH (11:00)
[2020-03-03] MEDS: HUM INSULIN NPH/REG INSULIN HM 100 UNIT/1 ML 3 ML SUBCUT SCH ×2 (11:02→17:31)
[2020-03-03] MEDS: PANTOPRAZOLE SODIUM 40 MG VIAL IV SCH (11:02)
[2020-03-03 11:54] LABS: ABSOLUTE EOSINOPHILS # (AUTO) 0.1 10^3/uL (0.0-0.6); ABSOLUTE LYMPHOCYTES (AUTO) 0.4 10^3/uL (0.5-4.7); ABSOLUTE MONOCYTES (AUTO) 0.2 10^3/uL (0.1-1.4); ABSOLUTE NEUT (AUTO) 1.5 10^3/uL (1.7-8.2); BASOPHILS % (AUTO) 0.5 % (0-2); EOSINOPHILS % (AUTO) 3.5 % (0-6); HEMATOCRIT 33.8 % (37.9-51.0); MEAN CORPUSCULAR HEMOGLOBIN 26.3 pg (27.0-33.4); MEAN CORPUSCULAR HGB CONC 32.6 g/dL (32.0-36.0); MEAN CORPUSCULAR VOLUME 81 fl (80-97); MONOCYTES % (AUTO) 9.6 % (3-13); PLATELET COUNT 122 10^3/uL (150-450); RED BLOOD COUNT 4.19 10^6/uL (4.35-5.55); RED CELL DISTRIBUTION WIDTH 18.2 % (11.5-14.0); SEGMENTED NEUTROPHILS % (AUTO) 66.4 % (42-78); TOTAL CELLS COUNTED % (AUTO) 100 %; WHITE BLOOD COUNT 2.2 10^3/uL (4.0-10.5)
[2020-03-03 12:13] LABS: ANION GAP 5 (5-19); BLOOD UREA NITROGEN 11 mg/dL (7-20); CARBON DIOXIDE 22 mmol/L (22-30); CHLORIDE 112 mmol/L (98-107); GLUCOSE 264 mg/dL (75-110); POTASSIUM 3.9 mmol/L (3.6-5.0)
[2020-03-03 17:11] LABS: ANION GAP 5 (5-19); BLOOD UREA NITROGEN 13 mg/dL (7-20); CALCIUM 9.5 mg/dL (8.4-10.2); CARBON DIOXIDE 23 mmol/L (22-30); CHLORIDE 110 mmol/L (98-107); GLUCOSE 256 mg/dL (75-110); POTASSIUM 4.2 mmol/L (3.6-5.0)
--- NOTE | 2020-03-03 17:48 | PDOC PROGRESS REPORT ---
Subjective Date:: 03/03/20 Subjective:: The patient is a 24-year-old male with a past medical history of newly diagnosed diabetes mellitus who was admitted 02/28/2020 with DKA. Patient was seen on morning rounds. He is found resting in bed, comfortably, on room air. He reports that he is feeling well. Appetite is good; no symptoms of nausea or vomiting. He further denies fever, chills, chest pain, palpitations, dyspnea, abdominal pain, nausea, vomiting, diarrhea. He has no questions or concerns at this time. No concerns per nursing. Blood glucose remains elevated >250 today. Reason For Visit: DIABETIC KETOACIDOSIS Physical Exam Vital Signs: Temp Pulse Resp BP Pulse Ox 97.3 F 94 20 129/72 H 99 03/03/20 15:20 03/03/20 15:20 03/03/20 15:20 03/03/20 15:20 03/03/20 15:20 Intake & Output 03/02/20 03/03/20 03/04/20 06:59 06:59 06:59 Intake Total 4655 4040 711 Output Total 2950 2675 500 Balance 1705 1365 211 Weight 97.7 kg 100.8 kg General appearance: PRESENT: no acute distress, cooperative, well-developed, well-nourished - overweight Head exam: PRESENT: atraumatic, normocephalic Eye exam: PRESENT: conjunctiva pink, EOMI, PERRLA. ABSENT: scleral icterus Mouth exam: PRESENT: moist, tongue midline Teeth exam: PRESENT: poor dentation Respiratory exam: PRESENT: clear to auscultation arnold, symmetrical, unlabored, other - room air. ABSENT: rales, rhonchi, wheezes Cardiovascular exam: PRESENT: RRR. ABSENT: diastolic murmur, rubs, systolic murmur Pulses: PRESENT: normal dorsalis pedis pul Vascular exam: PRESENT: normal capillary refill Extremities exam: PRESENT: full ROM, pedal edema - trace bilaterally. ABSENT: calf tenderness, clubbing Neurological exam: PRESENT: alert, awake, oriented to person, oriented to place, oriented to time, oriented to situation, CN II-XII grossly intact. ABSENT: motor sensory deficit Psychiatric exam: PRESENT: appropriate affect, normal mood. ABSENT: homicidal ideation, suicidal ideation Skin exam: PRESENT: dry, intact, warm. ABSENT: cyanosis, rash Results Laboratory Results: 03/03/20 10:51 03/03/20 16:36 03/03/20 03/03/20 03/03/20 05:28 05:28 10:51 WBC Cancelled 2.2 L RBC Cancelled 4.19 L Hgb Cancelled 11.0 L Hct Cancelled 33.8 L MCV Cancelled 81 MCH Cancelled 26.3 L MCHC Cancelled 32.6 RDW Cancelled 18.2 H Plt Count Cancelled 122 L Seg Neutrophils % Cancelled 66.4 Sodium Cancelled Potassium Cancelled Chloride Cancelled Carbon Dioxide Cancelled Anion Gap Cancelled BUN Cancelled Creatinine Cancelled Est GFR ( Amer) Cancelled Est GFR (Non-Af Amer) Cancelled Glucose Cancelled Calcium Cancelled 03/03/20 03/03/20 10:51 16:36 WBC RBC Hgb Hct MCV MCH MCHC RDW Plt Count Seg Neutrophils % Sodium 139.1 137.8 Potassium 3.9 4.2 Chloride 112 H 110 H Carbon Dioxide 22 23 Anion Gap 5 5 BUN 11 13 Creatinine 0.77 1.09 Est GFR ( Amer) > 60 > 60 Est GFR (Non-Af Amer) Glucose 264 H 256 H Calcium 9.0 9.5 02/28/20 02/28/20 15:48 15:48 Troponin I < 0.012 Cancelled Impressions: Chest X-Ray 02/28/20 16:36 IMPRESSION: NO ACUTE RADIOGRAPHIC FINDING IN THE CHEST. Assessment and Plan - Diagnosis (1) Type 2 diabetes mellitus with hyperglycemia Qualifiers: Diabetes mellitus intermediate insulin use: without intermediate use Qualified Code(s): E11.65 - Type 2 diabetes mellitus with hyperglycemia Is this a current diagnosis for this admission?: Yes Plan: Blood glucose elevated to 617 yesterday; improved today, though still too elevated to safely discharge home in a newly diagnosed diabetic with our experience at managing hyperglycemia. This afternoon glucose 256. Furhter adjustments to his insulin regimen made today. Continue 70/30 20 units twice daily Continue Humalog 6 units with meals. Continue Accu-Cheks before meals and at bedtime with sliding scale coverage. Consistent carb diet. Registered dietitian and extension educator consulted. (2) HIV (human immunodeficiency virus infection) Qualifiers: HIV symptom status: asymptomatic Qualified Code(s): Z21 - Asymptomatic human immunodeficiency virus [HIV] infection status Is this a current diagnosis for this admission?: Yes Plan: Continue home medication regimen. (3) Diabetic ketoacidosis Qualifiers: Diabetes mellitus type: type 2 Diabetes mellitus complication detail: without coma Qualified Code(s): E11.10 - Type 2 diabetes mellitus with ketoacidosis without coma Is this a current diagnosis for this admission?: Yes Plan: Resolved (4) LAITH (acute kidney injury) Is this a current diagnosis for this admission?: Yes Plan: Resolved (5) Dehydration Is this a current diagnosis for this admission?: Yes Plan: Resolved (6) Hyperkalemia Is this a current diagnosis for this admission?: Yes Plan: Secondary to insulin deficiency, resolved - Time Time Spent with patient: 25-34 minutes Medications reviewed and adjusted accordingly: Yes Anticipated Discharge Disposition: Home, Self Care Anticipated Discharge Timeframe: within 24 hours
[2020-03-04] MEDS: PANTOPRAZOLE SODIUM 40 MG VIAL IV SCH (09:04)
[2020-03-04] MEDS: INSULIN LISPRO 100 UNIT/ML 3 ML VIAL SUBCUT SCH ×3 (09:13→16:40)
[2020-03-04] MEDS: INSULIN REG, HUMAN 100 UNIT/ML 3 ML VIAL (PYX) SUBCUT SCH ×4 (09:13→22:56)
[2020-03-04] MEDS: ENOXAPARIN SODIUM INJ 40 MG/0.4 ML DISP.SYRIN SUBCUT SCH (09:14)
[2020-03-04] MEDS ORDERED: HUM INSULIN NPH/REG INSULIN HM 100 UNIT/1 ML 3 ML SUBCUT SCH (10:00)
--- NOTE | 2020-03-04 12:21 | PDOC PROGRESS REPORT ---
Subjective Date:: 03/04/20 Subjective:: The patient is a 24-year-old male with a past medical history of newly diagnosed diabetes mellitus who was admitted 02/28/2020 with DKA. Patient was seen on morning rounds. He is found resting in bed, comfortably, on room air. He reports that he is feeling well. Appetite is good; no symptoms of nausea or vomiting. He further denies fever, chills, chest pain, palpitations, dyspnea, abdominal pain, nausea, vomiting, diarrhea. He has no questions or concerns at this time. No concerns per nursing. Blood glucose remains elevated >350 today. Reason For Visit: DIABETIC KETOACIDOSIS Physical Exam Vital Signs: Temp Pulse Resp BP Pulse Ox 98.0 F 87 16 124/85 99 03/04/20 10:00 03/04/20 07:26 03/04/20 07:26 03/04/20 07:26 03/04/20 07:26 Intake & Output 03/03/20 03/04/20 03/05/20 06:59 06:59 06:59 Intake Total 4040 1656 Output Total 2675 500 Balance 1365 1156 Weight 100.8 kg 98.9 kg General appearance: PRESENT: no acute distress, cooperative, well-developed, well-nourished - Overweight Head exam: PRESENT: atraumatic, normocephalic Eye exam: PRESENT: conjunctiva pink, EOMI, PERRLA. ABSENT: scleral icterus Mouth exam: PRESENT: moist, tongue midline Respiratory exam: PRESENT: clear to auscultation arnold, symmetrical, unlabored. ABSENT: rales, rhonchi, wheezes Cardiovascular exam: PRESENT: RRR. ABSENT: diastolic murmur, rubs, systolic murmur Vascular exam: PRESENT: normal capillary refill Extremities exam: PRESENT: full ROM. ABSENT: calf tenderness, clubbing, pedal edema Musculoskeletal exam: PRESENT: ambulatory Neurological exam: PRESENT: alert, awake, oriented to person, oriented to place, oriented to time, oriented to situation, CN II-XII grossly intact. ABSENT: motor sensory deficit Psychiatric exam: PRESENT: appropriate affect, normal mood. ABSENT: homicidal ideation, suicidal ideation Skin exam: PRESENT: dry, intact, warm. ABSENT: cyanosis, rash Results Laboratory Results: 03/03/20 10:51 03/03/20 16:36 03/03/20 03/03/20 10:51 16:36 Sodium 139.1 137.8 Potassium 3.9 4.2 Chloride 112 H 110 H Carbon Dioxide 22 23 Anion Gap 5 5 BUN 11 13 Creatinine 0.77 1.09 Est GFR ( Amer) > 60 > 60 Glucose 264 H 256 H Calcium 9.0 9.5 02/28/20 02/28/20 15:48 15:48 Troponin I < 0.012 Cancelled Impressions: Chest X-Ray 02/28/20 16:36 IMPRESSION: NO ACUTE RADIOGRAPHIC FINDING IN THE CHEST. Assessment and Plan - Diagnosis (1) Type 2 diabetes mellitus with hyperglycemia Qualifiers: Diabetes mellitus senior living insulin use: without senior living use Qualified Code(s): E11.65 - Type 2 diabetes mellitus with hyperglycemia Is this a current diagnosis for this admission?: Yes Plan: Blood glucose still too elevated to safely discharge home in a newly diagnosed diabetic with multiple admissions for DKA and little experience at managing hyperglycemia. Blood glucose remains consistently above 250; this morning 360. Further adjustments to his insulin regimen made today. Continue 70/30; increased to 28 units twice daily Continue Humalog 6 units with meals. Continue Accu-Cheks before meals and at bedtime with sliding scale coverage. Consistent carb diet. Registered dietitian and development engineer consulted. (2) HIV (human immunodeficiency virus infection) Qualifiers: HIV symptom status: asymptomatic Qualified Code(s): Z21 - Asymptomatic human immunodeficiency virus [HIV] infection status Is this a current diagnosis for this admission?: Yes Plan: Continue home medication regimen. (3) Diabetic ketoacidosis Qualifiers: Diabetes mellitus type: type 2 Diabetes mellitus complication detail: without coma Qualified Code(s): E11.10 - Type 2 diabetes mellitus with ke toacidosis without coma Is this a current diagnosis for this admission?: Yes Plan: Resolved (4) LAITH (acute kidney injury) Is this a current diagnosis for this admission?: Yes Plan: Resolved (5) Dehydration Is this a current diagnosis for this admission?: Yes Plan: Resolved (6) Hyperkalemia Is this a current diagnosis for this admission?: Yes Plan: Secondary to insulin deficiency, resolved - Time Time Spent with patient: 25-34 minutes Medications reviewed and adjusted accordingly: Yes Anticipated Discharge Disposition: Home, Self Care Anticipated Discharge Timeframe: within 24 hours - Pending glucose control
[2020-03-04 14:55] LABS: PATH REVIEW PATHOLOGIST REVIEWED
[2020-03-04] MEDS: HUM INSULIN NPH/REG INSULIN HM 100 UNIT/1 ML 3 ML SUBCUT SCH (17:50)
[2020-03-05] MEDS: INSULIN REG, HUMAN 100 UNIT/ML 3 ML VIAL (PYX) SUBCUT SCH ×3 (08:27→16:32)
[2020-03-05] MEDS: INSULIN LISPRO 100 UNIT/ML 3 ML VIAL SUBCUT SCH ×3 (08:28→16:32)
[2020-03-05] MEDS: ENOXAPARIN SODIUM INJ 40 MG/0.4 ML DISP.SYRIN SUBCUT SCH (09:31)
[2020-03-05] MEDS: HUM INSULIN NPH/REG INSULIN HM 100 UNIT/1 ML 3 ML SUBCUT SCH ×2 (09:31→17:15)
[2020-03-05] MEDS: PANTOPRAZOLE SODIUM 40 MG VIAL IV SCH (09:32)
[2020-03-05 16:29] VITALS: BP 136/53
--- NOTE | 2020-03-05 16:44 | PDOC DISCHARGE SUMMARY ---
Impression - Admit/DC Date/PCP Admission Date/Primary Care Provider: 02/28/20 17:06 Discharge Date: 03/05/20 - Discharge Diagnosis (1) Type 2 diabetes mellitus with hyperglycemia Is this a current diagnosis for this admission?: Yes (2) HIV (human immunodeficiency virus infection) Is this a current diagnosis for this admission?: Yes (3) Diabetic ketoacidosis Is this a current diagnosis for this admission?: Yes (4) LAITH (acute kidney injury) Is this a current diagnosis for this admission?: Yes (5) Dehydration Is this a current diagnosis for this admission?: Yes (6) Hyperkalemia Is this a current diagnosis for this admission?: Yes - Additional Information Resuscitation Status: Full Code Discharge Diet: Diabetic Discharge Activity: Activity As Tolerated, Balance Activity w/Rest Referrals: [facility] [Provider Group] - 03/07/20 1:00 pm (*this is a telehealth appointment, you will be called*) Prescriptions: Insulin Lispro [Humalog Insulin (Lispro) 100 unit/mL] 6 unit SUBCUT AC 30 Days #1 vial Insulin NPH Hum/Reg Insulin Hm [Relion Novolin 70-30 Vial] 28 unit SQ BIDACBS 30 Days ml Home Medications: Bictegrav/Emtricit/Tenofov Ala [Biktarvy 50-200-25 mg Tablet] 1 each PO DAILY 03/02/20 Acetaminophen [Tylenol 325 mg Tablet] 650 mg PO Q4HP PRN tablet 03/05/20 Insulin Lispro [Humalog Insulin (Lispro) 100 unit/mL] 6 unit SUBCUT AC 30 Days #1 vial 03/05/20 Insulin NPH Hum/Reg Insulin Hm [Relion Novolin 70-30 Vial] 28 unit SQ BIDACBS 30 Days ml 03/05/20 History of Present Illiness History of Present Illness: Oer H&P by Dr. Valentin: FELIPE FAJARDO is a 24 year old male This patient was just discharged from the hospital on February 20 with a newly diagnosed diabetes mellitus. He was sent home on Humulin 70/30 as well as lispro however unfortunately it appears he was unable to get this filled on time. It appears that the pharmacy was delayed in getting the insulin to them answer patient has basically been without insulin for the past 1 week. He had a follow-up appointment at [facility] today and after being evaluated today he was advised to come to the emergency room for evaluation. He did check his blood sugar at home and it apparently read high. Patient denies any nausea vomiting at home. His intake has been poor. He was found to have a blood sugar of 1152, potassium of 5.8, creatinine of 2.06 and a BUN of 62 obviously reflecting a highly dehydrated condition due to his hypoglycemia. He is creatinine a week ago was 0.79 and his BUN was 12. His anion gap is actually relatively normal at 17 with a CO2 of 28 so patient is really hyperosmolar, and pH is 7.29 he does have some ketones in his urine. Patient was also tachycardic as expected as well as with elevated blood pressure. He actually does not have any leukocytosis although hemoglobin is elevated reflecting he is dehydration. He also has no abdominal pain or nausea or vomiting and urinalysis is benign for infection although positive for glucosuria ketonuria and small hematuria as to be expected Physical Exam Vital Signs: Temp Pulse Resp BP Pulse Ox 98.3 F 73 19 136/53 H 100 03/05/20 16:00 03/05/20 16:00 03/05/20 16:00 03/05/20 16:00 03/05/20 16:00 Intake & Output 03/04/20 03/05/20 03/06/20 06:59 06:59 06:59 Intake Total 1656 1140 240 Output Total 500 Balance 1156 1140 240 Weight 98.9 kg 98.7 kg General appearance: PRESENT: no acute distress, well-developed, well-nourished Head exam: PRESENT: atraumatic, normocephalic Eye exam: PRESENT: conjunctiva pink, EOMI, PERRLA. ABSENT: scleral icterus Mouth exam: PRESENT: moist, tongue midline Respiratory exam: PRESENT: clear to auscultation arnold, symmetrical, unlabored, other - Room air. ABSENT: rales, rhonchi, wheezes Cardiovascular exam: PRESENT: RRR. ABSENT: diastolic murmur, rubs, systolic murmur Pulses: PRESENT: normal dorsalis pedis pul Vascular exam: PRESENT: normal capillary refill GI/Abdominal exam: PRESENT: normal bowel sounds, soft. ABSENT: distended, guarding, mass, organolmegaly, rebound, tenderness Rectal exam: PRESENT: deferred Extremities exam: PRESENT: full ROM. ABSENT: calf tenderness, clubbing, pedal edema Neurological exam: PRESENT: alert, awake, oriented to person, oriented to place, oriented to time, oriented to situation, CN II-XII grossly intact. ABSENT: motor sensory deficit Psychiatric exam: PRESENT: appropriate affect, normal mood. ABSENT: homicidal ideation, suicidal ideation Skin exam: PRESENT: dry, intact, warm. ABSENT: cyanosis, rash Results Laboratory Results: WBC 2.2 10^3/uL (4.0-10.5) L 03/03/20 10:51 RBC 4.19 10^6/uL (4.35-5.55) L 03/03/20 10:51 Hgb 11.0 g/dL (13.5-17.0) L 03/03/20 10:51 Hct 33.8 % (37.9-51.0) L 03/03/20 10:51 MCV 81 fl (80-97) 03/03/20 10:51 MCH 26.3 pg (27.0-33.4) L 03/03/20 10:51 MCHC 32.6 g/dL (32.0-36.0) 03/03/20 10:51 RDW 18.2 % (11.5-14.0) H 03/03/20 10:51 Plt Count 122 10^3/uL (150-450) L 03/03/20 10:51 Lymph % (Auto) 20.0 % (13-45) 03/03/20 10:51 [place] % (Auto) 9.6 % (3-13) 03/03/20 10:51 Eos % (Auto) 3.5 % (0-6) 03/03/20 10:51 Baso % (Auto) 0.5 % (0-2) 03/03/20 10:51 Absolute Neuts (auto) 1.5 10^3/uL (1.7-8.2) L 03/03/20 10:51 Absolute Lymphs (auto) 0.4 10^3/uL (0.5-4.7) L 03/03/20 10:51 Absolute Monos (auto) 0.2 10^3/uL (0.1-1.4) 03/03/20 10:51 Absolute Eos (auto) 0.1 10^3/uL (0.0-0.6) 03/03/20 10:51 Absolute Basos (auto) 0.0 10^3/uL (0.0-0.2) 03/03/20 10:51 Total Counted 50 03/02/20 05:30 Seg Neutrophils % 66.4 % (42-78) 03/03/20 10:51 Seg Neuts % (Manual) 50 % (42-78) 03/02/20 05:30 Band Neutrophils % 4 % (3-5) 03/02/20 05:30 Lymphocytes % (Manual) 32 % (13-45) 03/02/20 05:30 Monocytes % (Manual) 10 % (3-13) 03/02/20 05:30 Eosinophils % (Manual) 4 % (0-6) 03/02/20 05:30 Basophils % (Manual) 0 % (0-2) 03/02/20 05:30 Abs Neuts (Manual) 1.1 10^3/uL (1.7-8.2) L 03/02/20 05:30 Abs Lymphs (Manual) 0.6 10^3/uL (0.5-4.7) 03/02/20 05:30 Abs Monocytes (Manual) 0.2 10^3/uL (0.1-1.4) 03/02/20 05:30 Absolute Eos (Manual) 0.1 10^3/uL (0.0-0.6) 03/02/20 05:30 Abs Basophils (Manual) 0.0 10^3/uL (0.0-0.2) 03/02/20 05:30 Toxic Granulation SLIGHT 02/29/20 02:23 Toxic Vacuolation PRESENT 02/29/20 02:23 Platelet Estimate Cancelled 03/03/20 05:28 Platelet Comment ADEQUATE 03/02/20 05:30 Polychromasia 1+ 03/02/20 05:30 Hypochromasia SLIGHT 02/29/20 02:23 Anisocytosis 2+ 03/02/20 05:30 Microcytosis SLIGHT 02/29/20 02:23 Target Cells SLIGHT 02/29/20 02:23 Tear Drop Cells SLIGHT 02/29/20 02:23 VBG pH 7.29 (7.30-7.42) L 02/28/20 15:48 VBG pCO2 61.9 mmHg (35-63) 02/28/20 15:48 VBG HCO3 29.0 mmol/L (20-32) 02/28/20 15:48 VBG Base Excess 0.6 mmol/L 02/28/20 15:48 Sodium 137.8 mmol/L (137-145) 03/03/20 16:36 Potassium 4.2 mmol/L (3.6-5.0) 03/03/20 16:36 Chloride 110 mmol/L (98-107) H 03/03/20 16:36 Carbon Dioxide 23 mmol/L (22-30) 03/03/20 16:36 Anion Gap 5 (5-19) 03/03/20 16:36 BUN 13 mg/dL (7-20) 03/03/20 16:36 Creatinine 1.09 mg/dL (0.52-1.25) 03/03/20 16:36 Est GFR ( Amer) > 60 (>60) 03/03/20 16:36 Est GFR (Non-Af Amer) Cancelled 03/03/20 05:28 Est GFR (MDRD) Non-Af > 60 (>60) 03/03/20 16:36 Glucose 256 mg/dL (75-110) H 03/03/20 16:36 POC Glucose 283 mg/dL (70-110) H 03/05/20 16:21 Lactic Acid 2.4 mmol/L (0.7-2.1) H 02/28/20 15:48 Calcium 9.5 mg/dL (8.4-10.2) 03/03/20 16:36 Phosphorus 3.3 mg/dL (2.5-4.5) 02/29/20 09:15 Magnesium 2.4 mg/dL (1.6-2.3) H 02/29/20 09:15 Total Bilirubin 0.6 mg/dL (0.2-1.3) 02/28/20 15:48 Direct Bilirubin 0.3 mg/dL (0.0-0.4) 02/28/20 15:48 Neonat Total Bilirubin Not Reportable 02/28/20 15:48 Neonat Direct Bilirubin Not Reportable 02/28/20 15:48 Neonat Indirect Bili Not Reportable 02/28/20 15:48 AST 14 U/L (17-59) L 02/28/20 15:48 ALT 28 U/L (<50) 02/28/20 15:48 Alkaline Phosphatase 277 U/L (38-126) H 02/28/20 15:48 Troponin I < 0.012 ng/mL 02/28/20 15:48 Troponin I Cancelled 02/28/20 15:48 Total Protein 9.0 g/dL (6.3-8.2) H 02/28/20 15:48 Albumin 4.6 g/dL (3.5-5.0) 02/28/20 15:48 EGFR Cancelled 03/03/20 05:28 Vitamin D 25-Hydroxy 14.8 ng/mL (14.7-68.3) 02/29/20 09:15 PTH Intact 32.6 pg/mL (10.0-65.0) 02/29/20 09:15 Urine Color STRAW 02/28/20 15:48 Urine Appearance CLEAR 02/28/20 15:48 Urine pH 5.0 (5.0-9.0) 02/28/20 15:48 Ur Specific [place] 1.029 02/28/20 15:48 Urine Protein NEGATIVE mg/dL (NEGATIVE) 02/28/20 15:48 Urine Glucose (UA) >=1000 mg/dL (NEGATIVE) H 02/28/20 15:48 Urine Ketones 25 mg/dL (NEGATIVE) H 02/28/20 15:48 Urine Blood SMALL (NEGATIVE) H 02/28/20 15:48 Urine Nitrite NEGATIVE (NEGATIVE) 02/28/20 15:48 Urine Bilirubin NEGATIVE (NEGATIVE) 02/28/20 15:48 Urine Urobilinogen NEGATIVE mg/dL (<2.0) 02/28/20 15:48 Ur Leukocyte Esterase NEGATIVE (NEGATIVE) 02/28/20 15:48 Urine WBC 0-1 /HPF 02/28/20 15:48 Amorphous Sediment 1+ 02/28/20 15:48 Urine Mucus TRACE 02/28/20 15:48 Urine Ascorbic Acid NEGATIVE (NEGATIVE) 02/28/20 15:48 Urine Opiates Screen NEGATIVE 02/28/20 15:48 Urine Methadone Screen NEGATIVE 02/28/20 15:48 Ur Barbiturates Screen NEGATIVE 02/28/20 15:48 Ur Phencyclidine Scrn NEGATIVE 02/28/20 15:48 Ur Amphetamines Screen NEGATIVE 02/28/20 15:48 U Benzodiazepines Scrn NEGATIVE 02/28/20 15:48 Urine Cocaine Screen NEGATIVE 02/28/20 15:48 U Marijuana (THC) Screen NEGATIVE 02/28/20 15:48 Slides for Path Review Cancelled 03/03/20 05:28 02/28/20 02/28/20 15:48 15:48 Troponin I < 0.012 Cancelled Impressions: Chest X-Ray 02/28/20 16:36 IMPRESSION: NO ACUTE RADIOGRAPHIC FINDING IN THE CHEST. Plan Plan of Treatment: Patient is discharged home in stable condition. He is advised follow-up with his primary care provider within 1 week. Continue a consistent carb diet. Drink plenty of water. Check fasting blood glucose and prior to dinner; keep a log to present to prima care provider for further insulin management. Return to the emergency department, as needed, for concerning symptoms. Time Spent: Greater than 30 Minutes Stroke Is this a Stroke Patient?: No Acute Heart Failure Is this a Heart Failure Patient?: No
== END 2020-03-05 18:23 | disposition home or self-care (01) | DRG 638 ==
LOC: ER 14:53 → EH 17:06 → 3S 20:06 → 3W 03-03 02:29
PROVIDERS: ADMIT Internal Medicine; ATTEND Registered Nurse
DX: E11.10 Type 2 diabetes mellitus with ketoacidosis without coma (principal); N17.9 Acute kidney failure, unspecified; Z21 Asymptomatic human immunodeficiency virus [HIV] infection status; E86.0 Dehydration; E87.5 Hyperkalemia; R31.9 Hematuria, unspecified; Z87.891 Personal history of nicotine dependence; Z83.3 Family history of diabetes mellitus; Z80.9 Family history of malignant neoplasm, unspecified; Z79.4 Long term (current) use of insulin
CPT/HCPCS: 36415; 71045; 80048; 80053; 80307; 81001; 82306; 82803; 82962; 83605; 83735; 83970; 84100; 84484; 85025; 93005; 93010; 96361; 96374; 99285; C9113; J1650; J1815; J2405; J3480; J3490; J7030; J7050